=== PATIENT | male | born 1940 | race Caucasian/White ===

== ENCOUNTER 2019-03-16 15:35 | Outpatient (REF) | payer MEDICARE, OTHER, SELFPAY ==
[2019-03-16 20:15] LABS: ALT 28 U/L (12-78); AST 24 U/L (15-37); Anion Gap 9.8 mmol/L (3-11); BUN 23 mg/dL (7-18); CO2 26.2 mmol/L (21.0-32.0); CREATININE 1.29 mg/dL (0.70-1.30); Calcium 8.8 mg/dL (8.5-10.1); Calculated LDL 76 mg/dL; Chloride 110 mmol/L (98-107); Cholesterol 128 mg/dL (50-200); Estimated GFR 54.01 (mL/min/1.73m2); Glucose 93 mg/dL (70-100); HDL Cholesterol 33 mg/dL (40-60); Potassium 4.7 mmol/L (3.5-5.1); Sodium 146 mmol/L (136-145); Triglyceride 96 mg/dL (30-150)
== END 2019-03-16 15:55 ==
LOC: NCHCN 15:35
PROVIDERS: PCP Physician Assistant Medical; Visit Provider Nurse Practitioner Family
DX: E78.5 Hyperlipidemia, unspecified (principal); I10 Essential (primary) hypertension
CPT/HCPCS: 80048; 80061; 83721; 84450; 84460

== ENCOUNTER 2020-07-10 10:51 | Outpatient (REF) | payer MEDICARE, OTHER, SELFPAY ==
[2020-07-15 21:43] LABS: SARS-CoV-2 RNA Undetected (Undetected); SARS-CoV-2 Specimen Source Nasal
== END 2020-07-10 11:11 ==
LOC: NCHCN 10:51
PROVIDERS: PCP Physician Assistant Medical; Visit Provider Internal Medicine
DX: Z20.828 Contact with and (suspected) exposure to other viral communicable diseases (principal)
CPT/HCPCS: U0003

== ENCOUNTER 2020-09-12 22:19 | Outpatient (REF) | payer MEDICARE, OTHER, SELFPAY ==
[2020-09-12 19:20] LABS: ALT 25 U/L (16-63); AST 17 U/L (15-37); Albumin 3.8 g/dL (3.4-5.0); Alkaline Phosphatase 79 U/L (46-116); Anion Gap 6.2 mmol/L (3-11); BUN 20 mg/dL (7-18); Bilirubin, Total 0.6 mg/dL (0.2-1.0); CO2 28.8 mmol/L (21.0-32.0); CREATININE 1.31 mg/dL (0.70-1.30); Calcium 8.8 mg/dL (8.5-10.1); Calculated LDL 74 mg/dL (<100); Chloride 110 mmol/L (98-107); Cholesterol 130 mg/dL (<200); Estimated GFR 52.92 (mL/min/1.73m2); Glucose 91 mg/dL (74-106); HDL Cholesterol 33 mg/dL (40-60); Potassium 4.8 mmol/L (3.5-5.1); Sodium 145 mmol/L (136-145); Total Protein 6.3 g/dL (6.4-8.2); Triglyceride 118 mg/dL (<150)
== END 2020-09-12 22:39 ==
LOC: NCHCN 22:19
PROVIDERS: PCP Physician Assistant Medical; Visit Provider Physician Assistant
DX: E78.5 Hyperlipidemia, unspecified (principal); I10 Essential (primary) hypertension; I25.10 Atherosclerotic heart disease of native coronary artery without angina pectoris
CPT/HCPCS: 80053; 80061

== ENCOUNTER 2021-08-04 09:20 | Outpatient (REF) | payer MEDICARE, OTHER, SELFPAY ==
[2021-08-04 20:28] LABS: ALT 25 U/L (16-63); AST 20 U/L (15-37); Albumin 3.8 g/dL (3.4-5.0); Alkaline Phosphatase 93 U/L (46-116); BUN 24 mg/dL (7-18); Bilirubin, Total 0.8 mg/dL (0.2-1.0); CREATININE 1.3 mg/dL (0.70-1.30); Calcium 8.9 mg/dL (8.5-10.1); Calculated LDL 92 mg/dL (<100); Chloride 107 mmol/L (98-107); Cholesterol 144 mg/dL (<200); Estimated GFR 53.25 (mL/min/1.73m2); Glucose 116 mg/dL (74-106); HDL Cholesterol 35 mg/dL (40-60); Potassium 4.7 mmol/L (3.5-5.1); Sodium 142 mmol/L (136-145); Total Protein 6.1 g/dL (6.4-8.2); Triglyceride 85 mg/dL (<150)
== END 2021-08-04 09:21 | disposition home or self-care (01) ==
LOC: NCHCN 09:20
PROVIDERS: PCP Physician Assistant Medical; Visit Provider Physician Assistant
DX: E78.5 Hyperlipidemia, unspecified (principal); I10 Essential (primary) hypertension
CPT/HCPCS: 80053; 80061

== ENCOUNTER 2022-06-10 11:31 | Outpatient (REF) | payer MEDICARE, OTHER, SELFPAY ==
[2022-06-10 21:32] LABS: Abs Immature Grans 0.02 10^3/uL (0.0-0.06); Absolute Basophil Count 0.05 10^3/uL (0.0-0.2); Absolute Eosinophil Count 0.26 10^3/uL (0.0-0.7); Absolute Lymphocyte Count 1.59 10^3/uL (1.2-3.4); Absolute Monocyte Count 0.63 10^3/uL (0.1-0.8); Absolute Neutrophil Count 3.25 10^3/uL (1.2-6.7); Basophils % 0.9; Eosinophils % 4.5; HCT 27.9 % (40.0-50.0); HGB 9.5 g/dL (13.5-17.5); Immature Grans % 0.3; Lymphocytes % 27.4; MCH 32.2 pg (27.0-33.0); MCHC 34.1 % (32.0-36.0); MCV 95 fL (80-95); MPV 12.3 fL (8.0-11.0); Monocytes % 10.9; Platelet Count 178 10^3/uL (130-400); RBC 2.95 10^6/uL (4.36-5.78); RDW 16.5 % (11.8-14.1); RDW-SD 57.2 fL
[2022-06-10 21:49] LABS: Anion Gap 6.8 mmol/L (3-11); BUN 31 mg/dL (7-18); CO2 26.2 mmol/L (21.0-32.0); CREATININE 1.4 mg/dL (0.70-1.30); Calcium 9.1 mg/dL (8.5-10.1); Chloride 106 mmol/L (98-107); Estimated GFR 50.81 (mL/min/1.73m2); Glucose 114 mg/dL (74-106); Potassium 3.9 mmol/L (3.5-5.1); Sodium 139 mmol/L (136-145)
== END 2022-06-10 11:32 | disposition home or self-care (01) ==
LOC: NCHCN 11:31
PROVIDERS: PCP Physician Assistant Medical; Visit Provider Physician Assistant
DX: D61.9 Aplastic anemia, unspecified (principal); I10 Essential (primary) hypertension
CPT/HCPCS: 80048; 85025

== ENCOUNTER 2022-12-02 14:47 | Outpatient (REF) | payer MEDICARE, SELFPAY ==
[2022-12-02 20:37] LABS: COMMENT (LAB VIEW ONLY) 157.23 mg/dL; PROTEIN 14.3 mg/dL; Prot/Crea Ur Ratio 0.09
[2022-12-02 20:38] LABS: ALT 88 U/L (16-63); AST 50 U/L (15-37); Albumin 3.3 g/dL (3.4-5.0); Alkaline Phosphatase 75 U/L (46-116); Total Protein 5.3 g/dL (6.4-8.2)
[2022-12-02 20:52] LABS: Bilirubin, Direct 0.6 mg/dL (0.0-0.2)
== END 2022-12-02 14:48 | disposition home or self-care (01) ==
LOC: NCHCN 14:47
PROVIDERS: PCP Physician Assistant Medical; Visit Provider Physician Assistant
DX: R60.0 Localized edema (principal)
CPT/HCPCS: 80076; 82565; 84156

== ENCOUNTER 2023-03-31 10:14 | Outpatient (REF) | payer MEDICARE, SELFPAY ==
--- OUTSIDE RECORDS SUMMARY | 2023-03-31 10:16 | XMS_ITS | Continuity of Care Document ---
Author Name Unknown Organization [facility] Address [address] [place] [address] Care Team Providers Care Eligibility Supervisor Name Role Phone Aga Roach Primary Care Physician Encounter PENDING SALE TO [facility] Date(s): 03/23/23 - 03/23/23 [facility] [address] [place] [address] Discharge Disposition: Home or Self Care Attending Physician: Damir Freeman MD Admitting Physician: Damir Freeman MD Referring Physician: Damir Freeman MD Allergies, Adverse Reactions, Alerts No Known Medication Allergies Assessment and Plan Diagnostic Tests Pending * Cyclosporine [facility] 03/23/23 Immunizations Given and Recorded Vaccine Date Status Refusal Reason SARS-CoV-2 (COVID-19) mRNA-1273 vaccine 02/10/22 R ecorded SARS-CoV-2 (COVID-19) mRNA-1273 vaccine 07/20/21 R ecorded SARS-CoV-2 (COVID-19) mRNA BNT-162b2 vax 12/15/20 Recorded SARS-CoV-2 (COVID-19) mRNA BNT-162b2 vax 11/14/20 Recorded Medications aspirin 81 mg =, Oral, Daily, 0 Refill(s) Start Date: 06/05/22 Status: Ordered Bactrim DS Oral, Mon/Wed/Fri, 0 Refill(s) Start Date: 08/17/22 Status: Ordered cycloSPORINE 25 mg oral capsule 250 mg =, Oral, every 12 hr, 0 Refill(s) Start Date: 08/17/22 Status: Ordered lisinopril 10 mg =, Oral, Daily, 0 Refill(s) Start Date: 06/05/22 Status: Ordered metoprolol extended release 50 mg =, Oral, BID, 0 Refill(s) Start Date: 06/05/22 Status: Ordered predniSONE 25 mg =, Oral, Daily, 0 Refill(s) Start Date: 08/17/22 Status: Ordered rosuvastatin 20 mg =, Oral, Daily, 0 Refill(s) Start Date: 06/05/22 Status: Ordered Vitamin C 500 mg =, Oral, Daily, 0 Refill(s) Start Date: 06/05/22 Status: Ordered Problem List Condition Confirmation Course Effective Dates Status Health St [facility] Informant Hypertension Confirmed Active Results Laboratory List Name Date .Morphology ([facility]) 03/23/23 Automated Diff 03/23/23 Basic Metabolic Panel 03/23/23 CBC w/ Diff 03/23/23 PT/ INR 03/23/23 Most recent to oldest [Reference Range]: 1 WBC [5.0-10.0 x10^3/mcL] 10.5 x10^3/mcL *HI* (03/23/23 12:31 PM) RBC [4.6-6.0 x10^6/mcL] 2.8 x10^6/mcL *LOW* (03/23/23 12:31 PM) Neutro Auto [40.0-75.0 %] 64.9 % (03/23/23 12:31 PM) Lymph Auto [20.0-50.0 %] 20.6 % (03/23/23 12:31 PM) [place] Auto [2.0-15.0 %] 8.9 % (03/23/23 12:31 PM) Basophil Auto [0.0-1.0 %] 0.7 % (03/23/23 12:31 PM) Prothrombin Time [9.0-11.0 seconds] 27.0 seconds *HI* (03/23/23 12:31 PM) INR 2.8 1 *NA* (03/23/23 12:31 PM) BUN [7-18 mg/dL] 64 mg/dL *HI* (03/23/23 12:31 PM) Glucose Level [74-106 mg/dL] 209 mg/dL *HI* (03/23/23 12:31 PM) Potassium Level [3.5-5.1 mmol/L] 4.1 mmo l/L (03/23/23 12:31 PM) MCV [80.0-96.0 fL] 120.2 fL *HI* (03/23/23 PM) RBC Morph Abnormal (03/23/23 PM) MCHC [31.0-35.0 g/dL] 35.1 g/dL *HI* (03/23/23 PM) Sodium Level [136-145 mmol/L] 144 mmol/L (03/23/23: PM) Hct [41.0-51.0 %] 33.9 % *LOW* (03/23/23 PM) Calcium Level [8.5-10.1 mg/dL] 9.0 mg/dL (03/23/23 PM) MCH [26.0-32.0 pg] 42.2 pg *HI* (03/23/23 PM) Neutro Absolute 6.8 x10^3/mcL *NA* (03/23/23: PM) Hgb [14.0-18.0 g/dL] 11.9 g/dL *LOW* (03/23/23 PM) Platelets [130-450 x10^3/mcL] 234 x10^3/ mcL (03/23/23:31 PM) CO2 [21-32 mmol/L] 25 mmol/L (03/23/23:31 PM) Macrocyte Moderate (03/23/23: PM) eGFR Non-AA [>=60] 23 *LOW* (03/23/23 PM) eGFR AA [>=60] 23 *LOW* (03/23/23 PM) Chloride Level [98-107 mmol/L] 105 mmol/ L (03/23/23: PM) RDW-CV [11.5-14.5 %] 14.4 % (03/23/23 PM) Imm Gran Auto [0.0-0.9 %] 0.3 % (03/23/23 PM) Slide Review Morph Only (03/23/23 PM) Anisocyte Rare (03/23/23 PM) Creatinine Level [0.70-1.30 mg/dL] 2.71 mg/dL *HI* (03/23/23 12:31 PM) Plt Estimation [Adequate] Adequate (03/23/23 12:31 PM) Eos, Auto [1.0-6.0 %] 4.6 % (03/23/23 12:31 PM) 1Interpretive Data: INR 2-2.5 Prophylaxis: Short term DVT INR 2-3 Prophylaxis: hip and femur surgery Therapy: DVT (3 mos) PE (3-6 mos) TIA (middle or intermediate school principal) Atr Fib (middle or intermediate school principal) Syst. emb post OR Mitral Stenosis with emboli (middle or intermediate school principal) Tissue prosthetic valves (3 mos min) INR 3-4.5 Therapy: recurrent DVT, PE (middle or intermediate school principal) Prosthetic heart valves (middle or intermediate school principal) Social History Social History Type Response Tobacco Never tobacco user T obacco Use:. Sex Male Patient Care team information Care Team Personnel Name: Mishel Garland CREDIT COORDINATOR Position: Physician Member Role: Nurse Practitioner Name: Aga Roach PA-C Position: PowerChart View Only Member Role: Primary Care Physician Address: Address: [facility] [address] [place] [address]- Care Team Related Persons Name: MAGUE SANTOYO Address: Home [address] [place] [address], [phone]
--- OUTSIDE RECORDS SUMMARY | 2023-03-31 10:16 | XMS_ITS | Continuity of Care Document ---
Author Name Unknown Organization [facility] Address [address] [place] [address] Care Team Providers Care Optical Fabrication Technician Name Role Phone Aga Roach Primary Care Physician Encounter [facility] Date(s): 07/10/22 - 07/10/[address] [address] Discharge Disposition: Home or Self Care Attending Physician: Aga Roach Admitting Physician: Aga Roach Referring Physician: Aga Roach Allergies, Adverse Reactions, Alerts No Known Medication Allergies Immunizations Given and Recorded Vaccine Date Status Refusal Reason SARS-CoV-2 (COVID-19) mRNA-1273 vaccine 02/10/22 R ecorded SARS-CoV-2 (COVID-19) mRNA-1273 vaccine 07/20/21 R ecorded SARS-CoV-2 (COVID-19) mRNA BNT-162b2 vax 12/15/20 Recorded SARS-CoV-2 (COVID-19) mRNA BNT-162b2 vax 11/14/20 Recorded Medications aspirin 81 mg =, Oral, Daily, 0 Refill(s) Start Date: 06/05/22 Status: Ordered lisinopril 10 mg =, Oral, Daily, 0 Refill(s) Start Date: 06/05/22 Status: Ordered metoprolol extended release 50 mg =, Oral, BID, 0 Refill(s) Start Date: 06/05/22 Status: Ordered rosuvastatin 20 mg =, Oral, Daily, 0 Refill(s) Start Date: 06/05/22 Status: Ordered Vitamin C 500 mg =, Oral, Daily, 0 Refill(s) Start Date: 06/05/22 Status: Ordered Problem List Condition Confirmation Course Effective Dates Status Health St atus Informant Hypertension Confirmed Active Vital Signs Most recent to oldest [Reference Range]: 1 2 3 Temperature Tympanic [36.6-37.9 Deg C] 37.9 Deg C (07/10/22 2:24 PM) Temperature Temporal Artery [36-38 Deg C] 37.9 Deg C (07/10/22 6:26 PM) 37.7 Deg C (07/10/22 5:21 PM) 37.7 Deg C (07/10/22 5:16 PM) Temperature Temporal Artery (DegF) [97.3-100 Deg F] 99.86 Deg F (07/10/22 5:21 PM) 99.86 Deg F (07/10/22 5:16 PM) 98.96 Deg F (07/10/22 5:11 PM) Peripheral Pulse Rate [60-100 bpm] 78 bpm (07/10/22 6:26 PM) 75 bpm (07/10/22 5:21 PM) 74 bpm (07/10/22:16 PM) Heart Rate Monitored [60-100 bpm] 92 bpm (07/10/22 1:30 PM) Respiratory Rate [12-24 br/min] 18 br/min (07/10/22:26 PM) 16 br/min (07/10/22:21 PM) 16 br/min (07/10/22 5:16 PM) Blood Pressure [90-140/60-90 mmHg] 105/61mmHg (07/10/22 6:26 PM) 105/62mmHg (07/10/22:21 PM) 104/58mmHg (07/10/22:16 PM) Mean Arterial Pressure, Cuff [65-140 mmHg] 76 mmHg (07/10/22:21 PM) 73 mmHg (07/10/22 5:16 PM) 76 mmHg (07/10/22:11 PM) Mean Arterial Pressure Cuff 75 mmHg (07/10/22:26 PM) 76 mmHg (07/10/22 5:21 PM) 71 mmHg (07/10/22 5:16 PM) Blood Pressure Location Right arm (07/10/22:21 PM) Right arm (07/10/22 5:16 PM) Right arm (11/4/22 5:11 PM) Blood Pressure Method Automatic (07/10/22 5:21 PM) Automatic (07/10/22 5:16 PM) Automatic (07/10/22 5:11 PM) Social History Social History Type Response Tobacco Never tobacco user T obacco Use:. Sex Male Patient Care team information Personnel Name: Aga Roach
--- OUTSIDE RECORDS SUMMARY | 2023-03-31 10:16 | XMS_ITS | Continuity of Care Document ---
Author Name Unknown Organization [facility] Address [address] [place] [address] Care Team Providers Care Occupational Rehabilitation Aide Name Role Phone Aga Roach Primary Care Physician Encounter [facility] Date(s): 01/19/23 - 01/19/[address] [address] Discharge Disposition: Home or Self Care Attending [...] Date: 06/05/22 Status: Ordered Bactrim DS Oral, Wed/Wed/Wed, 0 Refill(s) Start Date: 08/17/22 Status: Ordered [...] Confirmed Active Results Laboratory List Name Date Basic Metabolic Panel 01/19/23 CBC w/ Diff 01/19/23 Cyclosporine [facility] 01/19/23 PT/ INR 01/19/23 .Morphology ([facility]) 01/19/23 Automated Diff 01/19/23 Most recent to oldest [Reference Range]: 1 WBC [5.0-10.0 x10^3/mcL] 7.5 x10^3/mcL (01/19/23 9:59 AM) RBC [4.6-6.0 x10^6/mcL] 2.5 x10^6/mcL *LOW* (01/19/23 9:59 AM) Neutro Auto [40.0-75.0 %] 59.9 % (01/19/23 9:59 AM) Lymph Auto [20.0-50.0 %] 27.9 % (01/19/23 9:59 AM) [place] Auto [2.0-15.0 %] 10.3 % (01/19/23 9:59 AM) Basophil Auto [0.0-1.0 %] 0.5 % (01/19/23 9:59 AM) Prothrombin Time [9.0-11.0 seconds] 16.7 seconds *HI* (01/19/23 9:59 AM) INR 1.7 *NA* (01/19/23 9:59 AM) BUN [7-18 mg/dL] 61 mg/dL *HI* (01/19/23 9:59 AM) Glucose Level [74-106 mg/dL] 124 mg/dL *HI* (01/19/23 9:59 AM) Potassium Level [3.5-5.1 mmol/L] 4.5 mmo l/L (01/19/23 9:59 AM) MCV [80.0-96.0 fL] 124.5 fL *HI* (01/19/23 9:59 AM) RBC Morph Abnormal (01/19/23 9:59 AM) MCHC [31.0-35.0 g/dL] 33.3 g/dL (01/19/23 9:59 AM) Sodium Level [136-145 mmol/L] 142 mmol/L (01/19/23 9:59 AM) Hct [41.0-51.0 %] 31.5 % *LOW* (01/19/23 9:59 AM) Microcyte Small (01/19/23 9:59 AM) Schistocytes Rare (01/19/23 9:59 AM) Calcium Level [8.5-10.1 mg/dL] 8.8 mg/dL (01/19/23 9:59 AM) Poik Small (01/19/23 9:59 AM) MCH [26.0-32.0 pg] 41.5 pg *HI* (01/19/23 9:59 AM) Neutro Absolute 4.5 x10^3/mcL *NA* (01/19/23 9:59 AM) Hgb [14.0-18.0 g/dL] 10.5 g/dL *LOW* (01/19/23 9:59 AM) Polychrom Small (01/19/23 9:59 AM) Platelets [130-450 x10^3/mcL] 200 x10^3/ mcL (01/19/23 9:59 AM) CO2 [21-32 mmol/L] 28 mmol/L (01/19/23 9:59 AM) Macrocyte Moderate (01/19/23 9:59 AM) eGFR Non-AA [>=60] 31 *LOW* (01/19/23 9:59 AM) eGFR AA [>=60] 31 *LOW* (01/19/23 9:59 AM) Chloride Level [98-107 mmol/L] 106 mmol/ L (01/19/23 9:59 AM) RDW-CV [11.5-17.0 %] 20.2 % *HI* (01/19/23 9:59 AM) Steve Cells Rare (01/19/23 9:59 AM) Stomatocyte Small (01/19/23 9:59 AM) Imm Gran Auto [0.0-0.9 %] 0.5 % (01/19/23 9:59 AM) Slide Review Morph Only (01/19/23 9:59 AM) Anisocyte Moderate (01/19/23 9:59 AM) Creatinine Level [0.70-1.30 mg/dL] 2.13 mg/dL *HI* (01/19/23 9:59 AM) Plt Estimation [Adequate] Adequate (01/19/23 9:59 AM) Cyclosporine [facility] [See Note ng/mL] 144 ng /mL 1 *NA* (01/19/23 9:59 AM) Eos, Auto [1.0-6.0 %] 0.9 % *LOW* (01/19/23 9:59 AM) 1Result Comment: NOTE: Cyclosporine Therapeutic Range: 50-250 ng/mL (The goal level is based on clinical context). Should be collected as a trough level. Assayed utilizing [employer] Chemiluminescent technology. Values obtained by using different assay methods cannot be used interchangeably. Test performed [place] [address] Social History Social History Type Response Tobacco Never tobacco user T obacco Use:. Sex Male Patient Care team information Care Team Personnel Name: Mishel Garland QUALITY ASSURANCE TECH Position: Physician Member Role: Nurse Practitioner Name: Aga Roach PA-C Position: PowerChart View Only Member Role: Informed Provider Address: Address: [address] [address] [place] Care Team Related Persons Name: MAGUE SANTOYO [address] [place], [phone]
--- OUTSIDE RECORDS SUMMARY | 2023-03-31 10:16 | XMS_ITS | Continuity of Care Document ---
Author Name Unknown Organization [facility] Address [address] [place] [address] Care Team Providers Care Parts Sales Counterperson Name Role Phone Aga Roach Primary Care Physician [phone] Encounter [facility] Date(s): 06/25/22 - 06/25/[address] [address] Discharge Disposition: Home or Self Care Attending Physician: Aga Roach Admitting Physician: Aga Roach Referring Physician: Elie Gustafson DO Allergies, Adverse Reactions, Alerts No Known Medication Allergies Assessment and Plan Future Scheduled Tests Laboratory* CBC w/ Diff 06/11/22 * Parvovirus B19 Abs, IgG & IgM, S VARNER 06/11/22 Medications aspirin 81 mg =, Oral, Daily, [...] Confirmed Active Results Laboratory List Name Date ABO/Rh 06/25/22 Antibody Screen Gel 06/25/22 Red Blood Cells 06/25/22 CBC w/ Diff 06/25/22 .Morphology ([facility]) 06/25/22 Automated Diff 06/25/22 Most recent to oldest [Reference Range]: 1 WBC [5.0-10.0 x10^3/mcL] 6.2 x10^3/mcL (06/25/22 8:56 AM) RBC [4.6-6.0 x10^6/mcL] 2.3 x10^6/mcL *LOW* (06/25/22 8:56 AM) Neutro Auto [40.0-75.0 %] 47.3 % (06/25/22 8:56 AM) Lymph Auto [20.0-50.0 %] 37.4 % (06/25/22 8:56 AM) [place] Auto [2.0-15.0 %] 10.6 % (06/25/22 8:56 AM) Basophil Auto [0.0-1.0 %] 0.5 % (06/25/22 8:56 AM) ABO/Rh Type O POS *Unknown* (06/25/22 3:42 PM) MCV [80.0-103.0 fL] 94.0 fL (06/25/22 8:56 AM) RBC Morph Abnormal (06/25/22 8:56 AM) MCHC [31.0-35.0 g/dL] 34.5 g/dL (06/25/22 8:56 AM) Hct [41.0-51.0 %] 22.0 % *LOW* (06/25/22 8:56 AM) MCH [26.0-32.0 pg] 32.5 pg *HI* (06/25/22 8:56 AM) Neutro Absolute 2.9 x10^3/mcL *NA* (06/25/22 8:56 AM) Hgb [14.0-18.0 g/dL] 7.6 g/dL *LOW* (06/25/22 8:56 AM) Polychrom Rare (06/25/22 8:56 AM) Platelets [130-450 x10^3/mcL] 175 x10^3/ mcL (06/25/22 8:56 AM) RBC Product Ready Done (06/25/22 3:42 PM) RDW-CV [11.5-17.0 %] 16.2 % (06/25/22 8:56 AM) Imm Gran Auto [0.0-0.9 %] 0.3 % (06/25/22 8:56 AM) Anisocyte Small (06/25/22 8:56 AM) Antibody Screen Gel Negative ABSC (06/25/22 3:42 PM) Plt Estimation [Adequate] Adequate (06/25/22 8:56 AM) Eos, Auto [1.0-6.0 %] 3.9 % (06/25/22 8:56 AM) Social History Social History Type Response Tobacco Never tobacco user T obacco Use:. Sex Male Patient Care team information Personnel Name: Aga Roach
--- OUTSIDE RECORDS SUMMARY | 2023-03-31 10:17 | XMS_ITS | Continuity of Care Document ---
Author Name Unknown Organization [facility] Address [address] [place] [address] Care Team Providers Care Sound Cutter Name Role Phone Aga Roach Primary Care Physician [phone] Encounter [facility]_[place] Date(s): 12/28/22 - 12/28/[address] [address] Discharge Disposition: Home or Self Care Attending Physician: Aga Roach PA-C Admitting Physician: Aga Roach PA-C Referring Physician: Aga Roach PA-C Allergies, Adverse Reactions, Alerts No Known Medication Allergies Assessment and Plan Future Appointments Immunizations Given and Recorded Vaccine Date Status Refusal Reason SARS-CoV-2 (COVID-19) mRNA-1273 vaccine 02/10/22 R ecorded SARS-CoV-2 (COVID-19) mRNA-1273 vaccine 07/20/21 R ecorded SARS-CoV-2 (COVID-19) mRNA BNT-162b2 vax 12/15/20 Recorded SARS-CoV-2 (COVID-19) mRNA BNT-162b2 vax 11/14/20 Recorded Medications aspirin 81 mg =, Oral, Daily, 0 Refill(s) Start Date: 06/05/22 Status: Ordered Bactrim DS Oral, Mon/Wed/Wed, 0 Refill(s) Start Date: 08/17/22 Status: Ordered [...] Health St atus Informant Hypertension Confirmed Active Social History Social History Type Response Tobacco Never tobacco user T obacco Use:. Sex Male Patient Care team information Care Team Personnel Name: Mishel Garland CANTEEN MANAGER Position: Physician Member Role: Nurse Practitioner Name: Aga Roach PA-C Position: PowerChart View Only Member Role: Primary Care Physician Address: Address: [address] [address] Care Team Related Persons Name: MAGUE SANTOYO Address: Home [address] [place] [address] [place], [phone]
--- OUTSIDE RECORDS SUMMARY | 2023-03-31 10:17 | XMS_ITS | Continuity of Care Document ---
Author Name Unknown Organization [facility] Address [address] [place] [address] Care Team Providers Care Architectural Renderer Name Role Phone Aga Roach Primary Care Physician [facility] Date[facility] 07/22/22 - 07/23/[address] [address] Encounter Diagnosis Hypoproliferative anemia(Discharge Diagnosis) - 07/22/22 Discharge Disposition: Home or Self Care Attending Physician: Vanessa Sifuentes MD Admitting Physician: Vanessa Sifuentes MD Allergies, Adverse Reactions, Alerts No Known Medication Allergies Assessment and Plan Extracted from: Title:Clinical Document Author:Margareth Roy Date :07/23/22 Diagnosis: 1. Hypoproliferat artur anemia Comment: Diagnosis: Weakness Comment: Functional Status 07/22/22 Other exposure to Infectious Disease Non e Immunizations Given and Recorded Vaccine Date Status [...] Active Results Laboratory List Name Date ABO/Rh 07/22/22 Antibody Screen Gel 07/22/22 Red Blood Cells 07/22/22 C-Reactive Protein High Sensitivity (CRP HS) 07/22/22 CBC w/o Diff (CBC) 07/22/22 Comprehensive Metabolic Panel (CMP) 07/07 02/25 Reticulocyte Count Automated 07/22/22 Most recent to oldest [Reference Range]: 1 WBC [5.0-10.0 x10^3/mcL] 12.3 x10^3/mcL *HI* (07/22/22 6:05 PM) RBC [4.6-6.0 x10^6/mcL] 2.2 x10^6/mcL *LOW* (07/22/22 6:05 PM) BUN [7-18 mg/dL] 34 mg/dL *HI* (07/22/22 6:05 PM) ABO/Rh Type O POS *Unknown* (07/22/22 7:17 PM) Glucose Level [74-106 mg/dL] 129 mg/dL *HI* (07/22/22 6:05 PM) Potassium Level [3.5-5.1 mmol/L] 3.7 mmo l/L (07/22/22 6:05 PM) MCV [80.0-96.0] 87.4 (07/22/22 6:05 PM) AST [15-37 unit/L] 20 unit/L (07/22/22 6:05 PM) ALT [16-63 unit/L] 32 unit/L (07/22/22 6:05 PM) MCHC [31.0-35.0 g/dL] 34.0 g/dL (07/22/22 6:05 PM) Sodium Level [136-145 mmol/L] 131 mmol/L *LOW* (07/22/22 6:05 PM) Hct [41.0-51.0 %] 19.4 % 1 *CRIT* (07/22/22 6:05 PM) Calcium Level [8.5-10.1 mg/dL] 8.8 mg/dL (07/22/22 6:05 PM) Albumin Level [3.4-5.0 g/dL] 2.6 g/dL *LOW* (07/22/22 6:05 PM) Protein Total [6.4-8.2 g/dL] 5.9 g/dL *LOW* (07/22/22 6:05 PM) MCH [26.0-32.0 pg] 29.7 pg (07/22/22 6:05 PM) Bilirubin Total [0.2-1.0 mg/dL] 0.9 mg/d L (07/22/22 6:05 PM) Hgb [14.0-18.0 g/dL] 6.6 g/dL 2 *CRIT* (07/22/22 6:05 PM) Alk Phos [46-146 unit/L] 80 unit/L (07/22/22 6:05 PM) Platelets [130-450 x10^3/mcL] 214 x10^3/ mcL (07/22/22 6:05 PM) CO2 [21-32 mmol/L] 24 mmol/L (07/22/22 6:05 PM) Reticulocyte % [0.5-2.4 %] 0.2 % *LOW* (07/22/22 6:05 PM) eGFR Non-AA [>=60] 41 *LOW* (07/22/22 6:05 PM) eGFR AA [>=60] 41 *LOW* (07/22/22 6:05 PM) Chloride Level [98-107 mmol/L] 100 mmol/ L (07/22/22 6:05 PM) RBC Product Ready Done (07/22/22 7:17 PM) RDW-CV [11.5-17.0 %] 14.9 % (07/22/22 6:05 PM) CRP High Sens [0.00-3.00 mg/L] 234.44 mg /L *HI* (07/22/22 6:05 PM) Creatinine Level [0.70-1.30 mg/dL] 1.66 mg/dL *HI* (07/22/22 6:05 PM) Antibody Screen Gel Negative ABSC (07/22/22 7:17 PM) 1Result Comment: Called to Katie Johnie at 07/22/2022 18:42:30 EST_ 2Result Comment: Called to Katie Johnie at109/21/2021 18:41:56 EST _ Vital Signs Most recent to oldest [Reference Range]: 1 2 3 Temperature Temporal Artery [36-38 Deg C] 37.2 Deg C (07/22/22 11:32 PM) 37.5 Deg C (07/22/22 11:13 PM) 37.8 Deg C (07/22/22 8:45 PM) Temperature Temporal Artery (DegF) [97.3-100 Deg F] 99.5 Deg F (07/22/22 11:13 PM) 100.04 Deg F *HI* (07/22/22 8:45 PM) Peripheral Pulse Rate [60-100 bpm] 94 bpm (07/23/22 1:00 AM) 87 bpm (07/23/22 12:03 AM) 93 bpm (07/22/22 11:29 PM) Heart Rate Monitored [60-100 bpm] 93 bpm (07/23/22 1:00 AM) 86 bpm (07/23/22 12:03 AM) 97 bpm (07/22/22 11:29 PM) Respiratory Rate [12-24 br/min] 20 br/min (07/23/22 1:00 AM) 16 br/min (07/23/22 12:03 AM) 16 br/min (07/22/22 11:29 PM) Blood Pressure [90-140/60-90 mmHg] 112/64mmHg (07/23/22 1:00 AM) 100/64mmHg (07/23/22 12:03 AM) 110/66mmHg (07/22/22 11:32 PM) Mean Arterial Pressure, Cuff [65-140 mmHg] 80 mmHg (07/23/22 1:00 AM) 76 mmHg (07/23/22 12:03 AM) 81 mmHg (07/22/22 11:32 PM) Weight Dosing 86.00 kg (07/22/22 5:21 PM) Weight Estimated 86.00 kg (07/22/22 5:15 PM) Height/Length Dosing 174.800 cm (07/22/22 5:21 PM) Height/Length Estimated 174.800 cm (07/22/22 5:15 PM) Social History Social History Type Response Tobacco Never tobacco user T obacco Use:. Sex Male Hospital Discharge Instructions Patient Education 07/23/2022 00:00:27 Anemia Anemia Anemia is a condition in which there is not enough red blood cells or hemoglobin in the blood. Hemoglobin is a substance in red blood cells that carries oxygen. When you do not have enough red blood cells or hemoglobin (are anemic), your body cannot get enoughoxygen and your organs may not work properly. As a result, you may feel very tired or have other problems. What are the causes? Common causes of anemia include: ??? Excessive bleeding. Anemia can be caused by excessive bleeding inside or outside the body, including bleeding from the intestines or from heavy menstrual periods in females. ??? Poor nutrition. ??? Long-lasting (chronic) kidney, thyroid, and liver disease. ??? Bone marrow disorders, spleen problems, and blood disorders. ??? Cancer and treatments for cancer. ??? HIV (human immunodeficiency virus) and AIDS (acquired immunodeficiency syndrome). ??? Infections, medicines, and autoimmune disorders that destroy red blood cells. What are the signs or symptoms? Symptoms of this condition include: ??? Minor weakness. ??? Dizziness. ??? Headache, or difficulties concentrating and sleeping. ??? Heartbeats that feel irregular or faster than normal (palpitations). ??? Shortness of breath, especially with exercise. ??? Pale skin, lips, and nails, or cold hands and feet. ??? Indigestion and nausea. Symptoms may occur suddenly or develop slowly. If your anemia is mild, you may not have symptoms. How is this diagnosed? This condition is diagnosed based on blood tests, your medical history, and a physical exam. In some cases, a test may be needed in which cells are removed from the soft tissue inside of a bone and looked at under a microscope (bone marrow biopsy). Your health care provider may also check your stool (feces) for blood and may do additional testing to look for the cause of your bleeding. Other tests may include: ??? Imaging tests, such as a CT scan or MRI. ??? A procedure to see inside your esophagus and stomach (endoscopy). ??? A procedure to see inside your colon and rectum (colonoscopy). How is this treated? Treatment for this condition depends on the cause. If you continue to lose a lot of blood, you may need to be treated at a hospital. Treatment may include: ??? Taking supplements of iron, vitamin B12, or folic acid. ??? Taking a hormone medicine (erythropoietin) that can help to stimulate red blood cell growth. ??? Having a blood transfusion. This may be needed if you lose a lot of blood. ??? Making changes to your diet. ??? Having surgery to remove your spleen. Follow these instructions at home: ??? Take [id number] and prescription medicines only as told by your health care provider. ??? Take supplements only as told by your health care provider. ??? Follow any diet instructions that you were given by your health care provider. ??? Keep all follow-up visits as told by your health care provider. This is important. Contact a health care provider if: ??? You develop new bleeding anywhere in the body. Get help right away if: ??? You are very weak. ??? You are short of breath. ??? You have pain in your abdomen or chest. ??? You are dizzy or feel faint. ??? You have trouble concentrating. ??? You have bloody stools, black stools, or tarry stools. ??? You vomit repeatedly or you vomit up blood. These symptoms may represent a serious problem that is an emergency. Do not wait to see if the symptoms will go away. Get medical help right away. Call your local emergency services (911 in the [place] Do not drive yourself to the hospital. Summary ??? Anemia is a condition in which you do not have enough red blood cells or enough of a substance in your red blood cells that carries oxygen (hemoglobin). ??? Symptoms may occur suddenly or develop slowly. ??? If your anemia is mild, you may not have symptoms. ??? This condition is diagnosed with blood tests, a medical history, and a physical exam. Other tests may be needed. ??? Treatment for this condition depends on the cause of the anemia. This information is not intended to replace advice given to you by your health care provider. Make sure you discuss any questions you have with your health care provider. Document Revised: 07/30/2020 Document Reviewed: 07/30/2020 [employer] Patient Education ?? 2021 [employer]. Follow Up Care 07/22/2022 17:14:56 With:Aga Roach Address: [facility] [address] [place] [address]- When:1 week Emergency department Discharge instructions * Eddie Faulkner MD: PERFORM Event Display: ED Discharge Information Authored Date: BARBARAPERRY RUKHSANA A :1940 Age:82 years Sex:Male Visit Date:07/22/2022 Primary Care Physician: Aga Roach Discharge Instructions We would like to thank you for allowing us to assist you with your healthcare needs. The following includes patient education materials and information regarding your injury/illness. Diagnosis from Today's Visit Hypoproliferative anemia Discharge Vitals Temperature??(Temporal Artery) 99.0 ??F (37.2 ??C) Heart Rate??(Peripheral) 94 Heart Rate??(Monitored) 93 Respiratory Rate?? 20 Blood Pressure?? 112/64?? Height?? 68.82 in (174.800 cm) Weight??(Estimated) 189.63 lb (86.00 kg) Allergies No Known Medication Allergies What to Do Next You Need to Schedule the Following Appointments Follow Up with??Aga Roach When:??Within 1 week Where: [facility] [address] [place] [address]- You were treated today on an emergency basis; it may be land to contact your primary care provider to notify them of your visit today. You may have been referred to your regular doctor or a specialist, please follow up as instructed. If your condition worsens or you can't get in to see the doctor, contact the Emergency Department. Medications What How Much When Instructions Next Dose Unchanged ascorbic acid (Vitamin C) 500 Milligrams Oral (given by mouth) Every day Unchanged aspirin 81 Milligrams Oral (given by mouth) Every day Unchanged lisinopril 10 Milligrams Oral (given by mouth) Every day Unchanged metoprolol (metoprolol extended release) 50 Milligrams Oral (given by mouth) 2 times a day Unchanged rosuvastatin 20 Milligrams Oral (given by mouth) Every day Education Materials Anemia Anemia is a condition in which there is not enough red blood cells or hemoglobin in the blood. Hemoglobin is a substance in red blood cells that carries oxygen. When you do not have enough red blood cells or hemoglobin (are anemic), your body cannot get enoughoxygen and your organs may not work properly. As a result, you may feel very tired or have other problems. What are the causes? Common causes of anemia include: ? Excessive bleeding. Anemia can be caused by excessive bleeding inside or outside the body, including bleeding from the intestines or from heavy menstrual periods in females. ? Poor nutrition. ? Long-lasting (chronic) kidney, thyroid, and liver disease. ? Bone marrow disorders, spleen problems, and blood disorders. ? Cancer and treatments for cancer. ? HIV (human immunodeficiency virus) and AIDS (acquired immunodeficiency syndrome). ? Infections, medicines, and autoimmune disorders that destroy red blood cells. What are the signs or symptoms? Symptoms of this condition include: ? Minor weakness. ? Dizziness. ? Headache, or difficulties concentrating and sleeping. ? Heartbeats that feel irregular or faster than normal (palpitations). ? Shortness of breath, especially with exercise. ? Pale skin, lips, and nails, or cold hands and feet. ? Indigestion and nausea. Symptoms may occur suddenly or develop slowly. If your anemia is mild, you may not have symptoms. How is this diagnosed? This condition is diagnosed based on blood tests, your medical history, and a physical exam. In some cases, a test may be needed in which cells are removed from the soft tissue inside of a bone and looked at under a microscope (bone marrow biopsy). Your health care provider may also check your stool (feces) for blood and may do additional testing to look for the cause of your bleeding. Other tests may include: ? Imaging tests, such as a CT scan or MRI. ? A procedure to see inside your esophagus and stomach (endoscopy). ? A procedure to see inside your colon and rectum (colonoscopy). How is this treated? Treatment for this condition depends on the cause. If you continue to lose a lot of blood, you may need to be treated at a hospital. Treatment may include: ? Taking supplements of iron, vitamin B12, or folic acid. ? Taking a hormone medicine (erythropoietin) that can help to stimulate red blood cell growth. ? Having a blood transfusion. This may be needed if you lose a lot of blood. ? Making changes to your diet. ? Having surgery to remove your spleen. Follow these instructions at home: ? Take [id number] and prescription medicines only as told by your health care provider. ? Take supplements only as told by your health care provider. ? Follow any diet instructions that you were given by your health care provider. ? Keep all follow-up visits as told by your health care provider. This is important. Contact a health care provider if: ? You develop new bleeding anywhere in the body. Get help right away if: ? You are very weak. ? You are short of breath. ? You have pain in your abdomen or chest. ? You are dizzy or feel faint. ? You have trouble concentrating. ? You have bloody stools, black stools, or tarry stools. ? You vomit repeatedly or you vomit up blood. These symptoms may represent a serious problem that is an emergency. Do not wait to see if the symptoms will go away. Get medical help right away. Call your local emergency services (911 in the [place] Do not drive yourself to the hospital. Summary ? Anemia is a condition in which you do not have enough red blood cells or enough of a substance in your red blood cells that carries oxygen (hemoglobin). ? Symptoms may occur suddenly or develop slowly. ? If your anemia is mild, you may not have symptoms. ? This condition is diagnosed with blood tests, a medical history, and a physical exam. Other tests may be needed. ? Treatment for this condition depends on the cause of the anemia. This information is not intended to replace advice given to you by your health care provider. Make sure you discuss any questions you have with your health care provider. Document Revised: 07/30/2020 Document Reviewed: 07/30/2020 Elsevier Patient Education ?? 2021 [employer] Tests Performed Lab Test Name Test Result Date/Time WBC 12.3 x10^3/mcL 07/22/2022 18:05 EST RBC 2.2 x10^6/mcL 07/22/2022 18:05 EST Hgb 6.6 g/dL 07/22/2022 18:05 EST Hct 19.4 % 07/22/2022 18:05 EST MCV 87.4 07/22/2022 18:05 EST MCH 29.7 pg 07/22/2022 18:05 EST MCHC 34.0 g/dL 07/22/2022 18:05 EST RDW-CV 14.9 % 07/22/2022 18:05 EST Platelets 214 x10^3/mcL 07/22/2022 18:05 EST Reticulocyte % 0.2 % 07/22/2022 18:05 EST Sodium Level 131 mmol/L 07/22/2022 18:05 EST Potassium Level 3.7 mmol/L 07/22/2022 18:05 EST Chloride Level 100 mmol/L 07/22/2022 18:05 EST CO2 24 mmol/L 07/22/2022 18:05 EST Alk Phos 80 unit/L 07/22/2022 18:05 EST AST 20 unit/L 07/22/2022 18:05 EST ALT 32 unit/L 07/22/2022 18:05 EST BUN 34 mg/dL 07/22/2022 18:05 EST Glucose Level 129 mg/dL 07/22/2022 18:05 EST Creatinine Level 1.66 mg/dL 07/22/2022 18:05 EST eGFR AA 41 07/22/2022 18:05 EST eGFR Non-AA 41 07/22/2022 18:05 EST Calcium Level 8.8 mg/dL 07/22/2022 18:05 EST Protein Total 5.9 g/dL 07/22/2022 18:05 EST Albumin Level 2.6 g/dL 07/22/2022 18:05 EST Bilirubin Total 0.9 mg/dL 07/22/2022 18:05 EST CRP High Sens 234.44 mg/L 07/22/2022 18:05 EST ABO/Rh Type O POS 07/22/2022 19:17 EST Antibody Screen Gel Negative ABSC 07/22/2022 19:17 EST RBC Product Ready Done 07/22/2022 19:17 EST Crossmatch - IS Compatible 07/22/2022 19:17 EST Patient/Machine Candle Molder Signature Patient Name:RUKHSANA SANTOYO I have received this information and my questions have been answered. Patient/Machine Candle Molder Name: Patient/Machine Candle Molder Signature: Relationship to Patient: Witness Name/Signature: Date: Electronically Signed on: 07/23/2022 01:01 ESTSigned by:LEONOR Emergency department Note * Margareth Roy: PERFORM Event Display: ED Notes Authored Date: Discharge summary * Margareth Roy: PERFORM Event Display: Discharge Note Authored Date: * Margareth Roy: PERFORM Event Display: Discharge Note Authored Date: [id number] Diagnosis: 1. Hypoproliferative anemia Comment: Diagnosis: Weakness Comment: Electronically Signed on 07/23/22 07:13 AM Margareth Roy Patient Care team information Personnel Name: Aga Roach Address: Address: [address] [address]
--- OUTSIDE RECORDS SUMMARY | 2023-03-31 10:17 | XMS_ITS | Continuity of Care Document ---
Author Name Unknown Organization [facility] Address [address] [place] [address] Care Team Providers Care Plush Cutter Name Role Phone Aga Roach Primary Care Physician [phone] Encounter [facility] Date(s): 01/08/23 - 01/08/[address] [address] Discharge Disposition: Home or Self Care Attending [...] Results Laboratory List Name Date .Morphology ([facility]) 01/08/23 Automated Diff 01/08/23 CBC w/ Diff 01/08/23 Most recent to oldest [Reference Range]: 1 WBC [5.0-10.0 x10^3/mcL] 10.0 x10^3/mcL (01/08/23 7:48 AM) RBC [4.6-6.0 x10^6/mcL] 2.5 x10^6/mcL *LOW* (01/08/23 7:48 AM) Neutro Auto [40.0-75.0 %] 67.2 % (01/08/23 7:48 AM) Lymph Auto [20.0-50.0 %] 22.7 % (01/08/23 7:48 AM) Crowley Auto [2.0-15.0 %] 8.6 % (01/08/23 7:48 AM) Basophil Auto [0.0-1.0 %] 0.3 % (01/08/23 7:48 AM) MCV [80.0-96.0 fL] 125.0 fL *HI* (01/08/23 7:48 AM) RBC Morph Abnormal (01/08/23 7:48 AM) MCHC [31.0-35.0 g/dL] 33.3 g/dL (01/08/23 7:48 AM) Hct [41.0-51.0 %] 31.5 % *LOW* (01/08/23 7:48 AM) Microcyte Small (01/08/23 7:48 AM) Schistocytes Rare (01/08/23 7:48 AM) MCH [26.0-32.0 pg] 41.7 pg *HI* (01/08/23 7:48 AM) Neutro Absolute 6.7 x10^3/mcL *NA* (01/08/23 7:48 AM) Hgb [14.0-18.0 g/dL] 10.5 g/dL *LOW* (01/08/23 7:48 AM) Polychrom Rare (01/08/23 7:48 AM) Platelets [130-450 x10^3/mcL] 210 x10^3/ mcL (01/08/23 7:48 AM) Macrocyte Moderate (01/08/23 7:48 AM) RDW-CV [11.5-17.0 %] 22.6 % *HI* (01/08/23 7:48 AM) Ovalocytes Rare (01/08/23 7:48 AM) Imm Gran Auto [0.0-0.9 %] 0.4 % (01/08/23 7:48 AM) Plt Clumps Noted 1 (01/08/23 7:48 AM) Anisocyte Moderate (01/08/23 7:48 AM) Plt Estimation [Adequate] Adequate (01/08/23 7:48 AM) Eos, Auto [1.0-6.0 %] 0.8 % *LOW* (01/08/23 7:48 AM) 1Result Comment: Few small sized clumps Social History Social History Type Response Tobacco Never tobacco user T obacco Use:. Sex Male Patient Care team information Care Team Personnel Name: Mishel Garland MEDICAL SPECIALIST Position: Physician Member Role: Nurse Practitioner Name: Aga Roach PA-C Position: PowerChart View Only Member Role: Informed Provider Address: Address: [address] [address] Care Team Related Persons Name: MAGUE SANTOYO Address: Home [facility] TANYA [place]ady [place], [id number]
--- OUTSIDE RECORDS SUMMARY | 2023-03-31 10:17 | XMS_ITS | Continuity of Care Document ---
Author Name Unknown Organization [facility] Address [address] [place] [address] Care Team Providers Care Chief Security And Safety Officer Name Role Phone Aga Roach Primary Care Physician [phone] Encounter [facility] Date(s): 08/17/22 - 08/17/[address] [address] Discharge Disposition: Home or Self Care Attending Physician: Aga Roach PA-C Admitting Physician: Aga Roach PA-C Allergies, Adverse Reactions, Alerts No Known Medication Allergies Assessment and Plan Future Appointments Diagnostic Tests Pending * Cyclosporine [facility] 08/17/22 Immunizations Given and Recorded Vaccine Date Status [...] Care team information Personnel Name: Aga Roach PA-C Address: Address: [address] [address]- [place]
--- OUTSIDE RECORDS SUMMARY | 2023-03-31 10:17 | XMS_ITS | Continuity of Care Document ---
Author Name Unknown Organization [facility] Address [address] [place] [address] Care Team Providers Care Senior Paralegal Name Role Phone Aga Roach Primary Care Physician [facility] Date(s): 03/08/23 - 03/08/23 [facility] [address] [place] [address] Discharge Disposition: Home or Self Care Attending Physician: Damir Freeman MD Admitting Physician: Damir Freeman MD Referring Physician: Damir Freeman MD Allergies, Adverse Reactions, Alerts No Known Medication Allergies Assessment and Plan Diagnostic Tests Pending * Cyclosporine [facility] 03/08/23 Immunizations Given and Recorded Vaccine Date Status [...] Results Laboratory List Name Date .Morphology ([facility]) 03/08/23 Automated Diff 03/08/23 Basic Metabolic Panel 03/08/23 CBC w/ Diff 03/08/23 PT/ INR 03/08/23 Most recent to oldest [Reference Range]: 1 WBC [5.0-10.0 x10^3/mcL] 8.0 x10^3/mcL (03/08/23 7:11 AM) RBC [4.6-6.0 x10^6/mcL] 2.6 x10^6/mcL *LOW* (03/08/23 7:11 AM) Neutro Auto [40.0-75.0 %] 52.0 % (03/08/23 7:11 AM) Lymph Auto [20.0-50.0 %] 33.2 % (03/08/23 7:11 AM) Allen Auto [2.0-15.0 %] 10.9 % (03/08/23 7:11 AM) Basophil Auto [0.0-1.0 %] 0.5 % (03/08/23 7:11 AM) Prothrombin Time [9.0-11.0 seconds] 37.1 seconds *HI* (03/08/23 7:11 AM) INR 3.8 1 *NA* (03/08/23 7:11 AM) BUN [7-18 mg/dL] 62 mg/dL *HI* (03/08/23 7:11 AM) Glucose Level [74-106 mg/dL] 122 mg/dL *HI* (03/08/23 7:11 AM) Potassium Level [3.5-5.1 mmol/L] 4.1 mmo l/L (7/3/23 7:11 AM) MCV [80.0-96.0 fL] 120.4 fL *HI* (03/08/23 7:11 AM) RBC Morph Abnormal (03/08/23 7:11 AM) MCHC [31.0-35.0 g/dL] 35.1 g/dL *HI* (03/08/23 7:11 AM) Sodium Level [136-145 mmol/L] 146 mmol/L *HI* (03/08/23 7:11 AM) Hct [41.0-51.0 %] 31.9 % *LOW* (03/08/23: AM) Calcium Level [8.5-10.1 mg/dL] 8.9 mg/dL (03/08/23 7: AM) MCH [26.0-32.0 pg] 42.3 pg *HI* (03/08/23 7:11 AM) Neutro Absolute 4.1 x10^3/mcL *NA* (03/08/23 7:11 AM) Hgb [14.0-18.0 g/dL] 11.2 g/dL *LOW* (03/08/23 7:11 AM) Platelets [130-450 x10^3/mcL] 227 x10^3/ mcL (03/08/23 7:11 AM) CO2 [21-32 mmol/L] 25 mmol/L (03/08/23 7:11 AM) Macrocyte Moderate (03/08/23 7:11 AM) eGFR Non-AA [>=60] 22 *LOW* (03/08/23 7:11 AM) eGFR AA [>=60] 22 *LOW* (03/08/23 7:11 AM) Chloride Level [98-107 mmol/L] 109 mmol/ L *HI* (03/08/23 7:11 AM) RDW-CV [11.5-14.5 %] 14.1 % (03/08/23 7: AM) Imm Gran Auto [0.0-0.9 %] 0.5 % (03/08/23 7: AM) Slide Review Morph Only (03/08/23: AM) Anisocyte Small (03/08/23: AM) Creatinine Level [0.70-1.30 mg/dL] 2.81 mg/dL *HI* (03/08/23 7:11 AM) Plt Estimation [Adequate] Adequate (03/08/23 7:11 AM) Eos, Auto [1.0-6.0 %] 2.9 % (03/08/23 7:11 AM) 1Interpretive Data: INR 2-2.5 Prophylaxis: Short term DVT INR 2-3 Prophylaxis: hip and femur surgery Therapy: DVT (3 mos) PE (3-6 mos) TIA (prison) Atr Fib (prison) Syst. emb post [place] Mitral Stenosis with emboli (prison) Tissue prosthetic valves (3 mos min) INR 3-4.5 Therapy: recurrent DVT, PE (prison) Prosthetic heart valves (intermission coordinator) Social History Social History Type Response Tobacco Never tobacco user T obacco Use:. Sex Male Patient Care team information Care Team Personnel Name: Mishel Garland UX LEAD Position: Physician Member Role: Nurse Practitioner Name: Aga Roach PA-C Position: PowerChart View Only Member Role: Primary Care Physician Address: Address: [facility] [address] [place] [address]- Care Team Related Persons Name: MAGUE SANTOYO Address: Home [address] [place] [address] Ysabel [place], [phone]
--- OUTSIDE RECORDS SUMMARY | 2023-03-31 10:17 | XMS_ITS | Continuity of Care Document ---
Author Name Unknown Organization [facility] Address [address] [place] [address] Care Team Providers Care Nut Sheller Machine Operator Name Role Phone Aga Roach Primary Care Physician Encounter [facility] Date(s): 07/10/22 - 07/10/[address] [address] Discharge Disposition: Home or Self Care Attending [...] Active Results Laboratory List Name Date ABO/Rh 07/10/22 Antibody Screen Gel 07/10/22 Red Blood Cells 07/10/22 Most recent to oldest [Reference Range]: 1 ABO/Rh Type O POS *Unknown* (07/10/22 12:39 PM) RBC Product Ready Done (07/10/22 12:39 PM) Antibody Screen Gel Negative ABSC (07/10/22 12:39 PM) Vital Signs Most recent to oldest [Reference Range]: 1 Temperature Temporal Artery [36-38 Deg C ] 37.6 Deg C (07/10/22 7:06 PM) Peripheral Pulse Rate [60-100 bpm] 74 bp m (07/10/22 7:06 PM) Respiratory Rate [12-24 br/min] 16 br/mi n (07/10/22 7:06 PM) Blood Pressure [90-140/60-90 mmHg] 109/6 7mmHg (07/10/22 7:06 PM) Mean Arterial Pressure Cuff 79 mmHg (07/10/22 7:06 PM) Blood Pressure Location Left arm (07/10/22 7:06 PM) Social History Social History Type Response Tobacco Never tobacco user T obacco Use:. Sex Male Patient Care team information Personnel Name: Aga Roach
--- OUTSIDE RECORDS SUMMARY | 2023-03-31 10:17 | XMS_ITS | Continuity of Care Document ---
Author Name Unknown Organization [facility] Address [address] [place] [address] Care Team Providers Care Shoe Caser Name Role Phone Aga Roach Primary Care Physician Encounter [facility] Date(s): 07/31/22 - 07/31/[address] [address] Discharge Disposition: Home or Self Care Attending [...] Active Results Laboratory List Name Date ABO/Rh 07/31/22 Antibody Screen Gel 07/31/22 Red Blood Cells 07/31/22 Most recent to oldest [Reference Range]: 1 ABO/Rh Type O POS *Unknown* (07/31/22 9:26 AM) RBC Product Ready Done (07/31/22 9:26 AM) Antibody Screen Gel Negative ABSC (07/31/22 9:26 AM) Vital Signs Most recent to oldest [Reference Range]: 1 2 3 Temperature Temporal Artery [36-38 Deg C] 36.7 Deg C (07/31/22 3:46 PM) 36.9 Deg C (07/31/22 2:54 PM) 36.9 Deg C (07/31/22 2:02 PM) Peripheral Pulse Rate [60-100 bpm] 69 bpm (07/31/22 3:46 PM) 69 bpm (07/31/22 2:54 PM) 70 bpm (07/31/22 2:02 PM) Respiratory Rate [12-24 br/min] 16 br/min (07/31/22 3:46 PM) 16 br/min (07/31/22 2:54 PM) 16 br/min (07/31/22 2:02 PM) Blood Pressure [90-140/60-90 mmHg] 97/62mmHg (07/31/22 3:46 PM) 91/59mmHg (07/31/22 2:54 PM) 92/54mmHg (07/31/22 2:02 PM) Mean Arterial Pressure Cuff 73 mmHg (07/31/22 3:46 PM) 69 mmHg (07/31/22 2:54 PM) 66 mmHg (07/31/22 2:02 PM) Blood Pressure Location Left arm (07/31/22 3:46 PM) Left arm (07/31/22 2:54 PM) Left arm (07/31/22 2:02 PM) Blood Pressure Method Automatic (07/31/22 3:46 PM) Automatic (07/31/22 2:54 PM) Automatic (07/31/22 2:02 PM) Social History Social History Type Response Tobacco Never tobacco user T obacco Use:. Sex Male Patient Care team information Personnel Name: Aga Roach PA-C Address: Address: [address] [address]- [place]
--- OUTSIDE RECORDS SUMMARY | 2023-03-31 10:17 | XMS_ITS | Continuity of Care Document ---
Author Name Unknown Organization [facility] Address [address] [place] [address] Care Team Providers Care Hatchery Manager Name Role Phone Aga Roach Primary Care Physician [phone] Encounter [facility] Date(s): 06/26/22 - 06/26/[address] [address] Discharge Disposition: Home or Self Care Attending [...] Artery [36-38 Deg C] 36.7 Deg C (06/26/22 1:41 PM) 36.8 Deg C (06/26/22 12:37 PM) 36.8 Deg C (06/26/22 11:39 AM) Peripheral Pulse Rate [60-100 bpm] 67 bpm (06/26/22 1:41 PM) 52 bpm *LOW* (06/26/22 12:37 PM) 50 bpm *LOW* (06/26/22 11:39 AM) Respiratory Rate [12-24 br/min] 16 br/min (06/26/22 1:41 PM) 16 br/min (06/26/22 12:37 PM) 16 br/min (06/26/22 11:39 AM) Blood Pressure [90-140/60-90 mmHg] 103/68mmHg (06/26/22 1:41 PM) 91/57mmHg (06/26/22 12:37 PM) 94/58mmHg (06/26/22 11:39 AM) Mean Arterial Pressure Cuff 80 mmHg (06/26/22 1:41 PM) 68 mmHg (06/26/22 12:37 PM) 71 mmHg (06/26/22 11:39 AM) Blood Pressure Location Left arm (06/26/22 1:41 PM) Left arm (06/26/22 12:37 PM) Left arm (06/26/22 11:39 AM) Blood Pressure Method Automatic (06/26/22 1:41 PM) Automatic (06/26/22 12:37 PM) Automatic (06/26/22 11:39 AM) Social History Social History Type Response Tobacco Never tobacco user T obacco Use:. Sex Male Patient Care team information Personnel Name: Aga Roach
--- OUTSIDE RECORDS SUMMARY | 2023-03-31 10:17 | XMS_ITS | Continuity of Care Document ---
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 Discharge Disposition: Home Attending Physician: Joe Betancur MD Attending Physician: Elie Gustafson DO Admitting Physician: Joe Betancur MD Allergies, Adverse Reactions, Alerts No Known Medication Allergies Assessment and Plan Diagnostic Tests Pending * Erythropoietin, S HAN[place] 06/05/22 * Haptoglobin UV 06/05/22 * Pathology Smear Consult 06/06/22 Future Scheduled Tests Laboratory* CBC w/ Diff 06/11/22 * Parvovirus B19 Abs, IgG & IgM, S [place] 06/11/22 Functional Status 06/06/22 Breakfast Percent 90 06/05/22 Family Member Travel History No recent t ravel Recent Travel History No recent travel Other exposure to Infectious Disease Non e 06/05/22 Living Environment No Living Environmen t Information Available Lives In Other: house Lives With Spouse Living Situation Home independently Home Barriers None Job Responsibilities retired teacher Number of Stairs Inside 13 Number of Stairs Outside 3 Medications aspirin 81 mg =, Oral, Daily, [...] Date: 06/05/22 Status: Ordered Problem List Condition Effective Dates Status Health Status Inform ant Hypertension(Confirmed) Active Results Laboratory List Name Date CBC w/o Diff (Hemogram) 06/06/22 CBC w/o Diff 06/06/22 Comprehensive Metabolic Panel 06/06/22 Magnesium Level 06/06/22 Troponin-I 06/06/22 Red Blood Cells 06/05/22 Hematocrit 06/05/22 Hemoglobin 06/05/22 CBC w/o Diff 06/05/22 Lactate Dehydrogenase (LDH) 06/05/22 Reticulocyte Count Automated 06/05/22 TSH w/ Rflx to Free T4 06/05/22 Troponin-I 06/05/22 Troponin-I 06/05/22 Ferritin 06/05/22 Folate Level 06/05/22 Iron Level and TIBC 06/05/22 Vitamin B12 Level 06/05/22 SARS-CoV-2 (COVID-19) RNA (ID Now) Urinalysis with Micro if Indicated and C ulture if Indicated 06/05/22 ABO/Rh 06/05/22 Antibody Screen Gel 06/05/22 Red Blood Cells 06/05/22 Comprehensive Metabolic Panel (CMP) 06/05 Magnesium Level 06/05/22 NT- Pro BNP 06/05/22 .Morphology ([facility]) 06/05/22 Automated Diff 06/05/22 Most recent to oldest [Reference Range]: 1 2 3 WBC [5.0-10.0 x10^3/mcL] 6.6 x10^3/mcL (06/06/22 1:20 PM) 7.6 x10^3/mcL (06/06/22 7:06 AM) 5.2 x10^3/mcL (06/05/22 7:09 PM) RBC [4.6-6.0 x10^6/mcL] 2.9 x10^6/mcL *LOW* (06/06/22 1:20 PM) 2.9 x10^6/mcL *LOW* (06/06/22 7:06 AM) 1.9 x10^6/mcL *LOW* (06/05/22 7:09 PM) Neutro Auto [40.0-75.0 %] 44.8 % (06/05/22 8:36 AM) Lymph Auto [20.0-50.0 %] 38.3 % (06/05/22 8:36 AM) [place] Auto [2.0-15.0 %] 11.7 % (06/05/22 8:36 AM) Basophil Auto [0.0-1.0 %] 0.7 % (06/05/22 8:36 AM) BUN [7-18 mg/dL] 24 mg/dL *HI* (06/06/22 7:06 AM) 25 mg/dL *HI* (06/05/22 8:36 AM) UA Color Yellow (06/05/22 10:09 AM) ABO/Rh Type O POS *Unknown* (06/05/22 8:56 AM) Glucose Level [74-106 mg/dL] 104 mg/dL (06/06/22 7:06 AM) 125 mg/dL *HI* (06/05/22 8:36 AM) Potassium Level [3.5-5.1 mmol/L] 4.2 mmol/L (06/06/22 7:06 AM) 4.1 mmol/L (06/05/22 8:36 AM) MCV [80.0-103.0 fL] 93.8 fL (06/06/22 1:20 PM) 92.3 fL (06/06/22 7:06 AM) 101.1 fL (06/05/22 7:09 PM) UA Urobilinogen Positive *ABN* (06/05/22 10:09 AM) RBC Morph Abnormal (06/05/22 8:36 AM) UA Bili [Negative] Negative (06/05/22 10:09 AM) UA Ketones Negative (06/05/22 10:09 AM) AST [15-37 unit/L] 19 unit/L (06/06/22 7:06 AM) 19 unit/L (06/05/22 8:36 AM) ALT [14-59 unit/L] 32 unit/L (06/06/22 7:06 AM) 37 unit/L (06/05/22 8:36 AM) MCHC [31.0-35.0 g/dL] 34.6 g/dL (06/06/22 1:20 PM) 35.1 g/dL *HI* (06/06/22 7:06 AM) 34.4 g/dL (06/05/22 7:09 PM) Troponin-I [0.0-76.2 pg/mL] 34.3 pg/mL (06/06/22 1:15 AM) 32.3 pg/mL (06/05/22 7:09 PM) 28.8 pg/mL (06/05/22 1:10 PM) Sodium Level [136-145 mmol/L] 140 mmol/L (06/06/22 7:06 AM) 140 mmol/L (06/05/22 8:36 AM) Folate Level [8.6-58.9 ng/mL] 17.7 ng/mL (06/05/22 11:32 AM) UA Leuk Est Negative (06/05/22 10:09 AM) UA Nitrite Negative (06/05/22 10:09 AM) UA Glucose [Negative] Negative (06/05/22 10:09 AM) Hct [41.0-51.0 %] 27.2 % *LOW* (06/06/22 1:20 PM) 26.5 % *LOW* (06/06/22 7:06 AM) 18.1 % 1 *CRIT* (06/05/22 8:22 PM) Calcium Level [8.5-10.1 mg/dL] 8.7 mg/dL (06/06/22 7:06 AM) 8.8 mg/dL (06/05/22 8:36 AM) Albumin Level [3.4-5.0 g/dL] 3.5 g/dL (06/06/22 7:06 AM) 3.6 g/dL (06/05/22 8:36 AM) Protein Total [6.4-8.2 g/dL] 6.1 g/dL *LOW* (06/06/22 7:06 AM) 6.2 g/dL *LOW* (06/05/22 8:36 AM) UA Protein Negative (06/05/22 10:09 AM) Iron Sat [20-55 %] 89 % *HI* (06/05/22 11:32 AM) MCH [26.0-32.0 pg] 32.4 pg *HI* (06/06/22 1:20 PM) 32.4 pg *HI* (06/06/22 7:06 AM) 34.7 pg *HI* (06/05/22 7:09 PM) Magnesium Level [1.8-2.4 mg/dL] 1.7 mg/dL *LOW* (06/06/22 7:06 AM) 2.0 mg/dL (06/05/22 8:36 AM) Neutro Absolute 2.7 x10^3/mcL *NA* (06/05/22 8:36 AM) Bilirubin Total [0.2-1.0 mg/dL] 1.7 mg/dL *HI* (06/06/22 7:06 AM) 0.7 mg/dL (06/05/22 8:36 AM) Hgb [14.0-18.0 g/dL] 9.4 g/dL *LOW* (06/06/22 1:20 PM) 9.3 g/dL *LOW* (06/06/22 7:06 AM) 6.5 g/dL 2 *CRIT* (06/05/22 8:22 PM) B12 Level [193-986 pg/mL] 4743 pg/mL *HI* (06/05/22 11:32 AM) Alk Phos [46-146 unit/L] 100 unit/L (06/06/22 7:06 AM) 107 unit/L (06/05/22 8:36 AM) LDH [85-227 unit/L] 267 unit/L *HI* (06/05/22 7:09 PM) UA Blood Negative (06/05/22 10:09 AM) UA Spec Grav 1.010 *NA* (06/05/22 10:09 AM) Ferritin Level [26-388 ng/mL] 1025 ng/mL *HI* (06/05/22 11:32 AM) Polychrom Rare (06/05/22 8:36 AM) Platelets [130-450 x10^3/mcL] 164 x10^3/mcL (06/06/22 1:20 PM) 156 x10^3/mcL (06/06/22 7:06 AM) 159 x10^3/mcL (06/05/22 7:09 PM) CO2 [21-32 mmol/L] 26 mmol/L (06/06/22 7:06 AM) 25 mmol/L (06/05/22 8:36 AM) TIBC [250-450 mcg/dL] 309 mcg/dL (06/05/22 11:32 AM) Reticulocyte % [0.5-2.4 %] 0.4 % *LOW* (06/05/22 7:09 PM) TSH [0.358-3.740 mcIntlUnit/mL] 1.504 mcIntlUnit/mL (06/05/22 7:09 PM) Iron [65-175 mcg/dL] 276 mcg/dL *HI* (06/05/22 11:32 AM) Macrocyte Small (06/05/22 8:36 AM) UA pH 6.0 *NA* (06/05/22 10:09 AM) eGFR Non-AA [>=60] 44 *LOW* (06/06/22 7:06 AM) 50 *LOW* (06/05/22 8:36 AM) eGFR AA [>=60] 44 *LOW* (06/06/22 7:06 AM) 50 *LOW* (06/05/22 8:36 AM) UA Appear Clear (06/05/22 10:09 AM) Volume Transfused 350 mL (06/05/22 1:19 PM) NT-proBNP [0-450 pg/mL] 760 pg/mL *HI* (06/05/22 8:36 AM) Chloride Level [98-107 mmol/L] 106 mmol/L (06/06/22 7:06 AM) 108 mmol/L *HI* (06/05/22 8:36 AM) RBC Product Ready Done (06/05/22 10:30 PM) Done (06/05/22 8:56 AM) RDW-CV [11.5-17.0 %] 18.8 % *HI* (06/06/22 1:20 PM) 18.6 % *HI* (06/06/22 7:06 AM) 17.2 % *HI* (06/05/22 7:09 PM) Imm Gran Auto [0.0-0.9 %] 0.2 % (06/05/22 8:36 AM) Creatinine Level [0.70-1.30 mg/dL] 1.58 mg/dL *HI* (06/06/22 7:06 AM) 1.43 mg/dL *HI* (06/05/22 8:36 AM) Antibody Screen Gel Negative ABSC (06/05/22 8:56 AM) SARS-CoV-2 (COVID-19) RNA (ID Now) [Not Detected] Not Detected (06/05/22 10:29 AM) Plt Estimation [Adequate] Adequate (06/05/22 8:36 AM) Anion Gap [8-16 mmol/L] 8 mmol/L (06/06/22 7:06 AM) 7 mmol/L *LOW* (06/05/22 8:36 AM) Eos, Auto [1.0-6.0 %] 4.3 % (06/05/22 8:36 AM) 1Result Comment: Called to ANNETTE Plummer at _06/05/2022 20:41:59 EDT 2Result Comment: Called to ANNETTE Plummer at _06/05/2022 20:41:14 EDT Vital Signs Most recent to oldest [Reference Range]: 1 2 3 Temperature Temporal Artery [36-38 Deg C] 37.2 Deg C (06/06/22 10:20 AM) 37.3 Deg C (06/06/22 6:37 AM) 37.3 Deg C (06/06/22 4:01 AM) Temperature Temporal Artery (DegF) [97.3-100 Deg F] 98.96 Deg F (06/06/22 10:20 AM) 99.86 Deg F (06/05/22 10:45 PM) 98.78 Deg F (06/05/22 5:17 PM) Peripheral Pulse Rate [60-100 bpm] 81 bpm (06/06/22 10:23 AM) 79 bpm (06/06/22 10:22 AM) 65 bpm (06/06/22 10:20 AM) Heart Rate Monitored [60-100 bpm] 67 bpm (06/05/22 1:19 PM) 77 bpm (06/05/22 1:07 PM) 74 bpm (06/05/22 12:10 PM) Respiratory Rate [12-24 br/min] 22 br/min (06/06/22 10:23 AM) 20 br/min (06/06/22 10:22 AM) 18 br/min (06/06/22 10:20 AM) Blood Pressure [90-140/60-90 mmHg] 113/72mmHg (06/06/22 10:23 AM) 116/70mmHg (06/06/22 10:22 AM) 101/71mmHg (06/06/22 10:20 AM) Mean Arterial Pressure, Cuff [65-140 mmHg] 86 mmHg (06/06/22 10:23 AM) 85 mmHg (06/06/22 10: AM) 81 mmHg (06/06/22 10:20 AM) Mean Arterial Pressure Cuff 97 mmHg (06/06/22 6:37 AM) 84 mmHg (06/06/22 4:01 AM) 82 mmHg (06/06/22 2:53 AM) Weight 86.8 kg (06/06/22 6:37 AM) 87.8 kg (06/05/22 2:12 PM) Weight Dosing 88.00 kg (06/05/22 8:36 AM) Weight Estimated 88.00 kg (06/05/22 8:16 AM) Height 5.9 cm (06/05/22 2:12 PM) Height/Length Dosing 175.000 cm (06/05/22 8:36 AM) Height/Length Estimated 175.000 cm (06/05/22 8:16 AM) Social History Social History Type Response Tobacco Never tobacco user T obacco Use:. Sex Male Hospital Discharge Instructions Patient Education 06/06/2022 14:19:28 Anemia Anemia Anemia is a condition in [...] Follow these instructions at home: ??? Take [id number] and prescription medicines only as told by [...] provider. Document Revised: 07/30/2020 Document Reviewed: 07/30/2020 Knowledge Factor Patient Education ?? 2021 [employer]. Follow Up Care 06/05/2022 08:16:13 With:Aga Roach Address: [phone] When:1 to 2 weeks Comments:Please follow up with Aga Roach. There are pending labs that will need to be followed up, and you will likely need to see a blood doctor. Patient Care team information Personnel Name: Aga Roach
--- OUTSIDE RECORDS SUMMARY | 2023-03-31 10:17 | XMS_ITS | Continuity of Care Document ---
Author Name Unknown Organization [facility] Address [address] [place] [address] Care Team Providers Care Butcher Assistant Name Role Phone Aga Roach Primary Care Physician [phone] Encounter [facility] Date(s): 08/10/22 - 08/10/[address] [address] Discharge Disposition: Home or Self Care Attending [...] Results Laboratory List Name Date .Morphology ([facility]) 08/10/22 Automated Diff 08/10/22 CBC w/ Diff 08/10/22 Most recent to oldest [Reference Range]: 1 WBC [5.0-10.0 x10^3/mcL] 9.4 x10^3/mcL (08/10/22 9:03 AM) RBC [4.6-6.0 x10^6/mcL] 2.7 x10^6/mcL *LOW* (08/10/22 9:03 AM) Neutro Auto [40.0-75.0 %] 69.9 % (08/10/22 9:03 AM) Lymph Auto [20.0-50.0 %] 15.7 % *LOW* (08/10/22 9:03 AM) [place] Auto [2.0-15.0 %] 11.5 % (08/10/22 9:03 AM) Basophil Auto [0.0-1.0 %] 0.4 % (08/10/22 9:03 AM) MCV [80.0-96.0] 88.0 (08/10/22 9:03 AM) RBC Morph Abnormal (08/10/22 9:03 AM) MCHC [31.0-35.0 g/dL] 32.8 g/dL (08/10/22 9:03 AM) Hct [41.0-51.0 %] 24.1 % *LOW* (08/10/22 9:03 AM) Microcyte Small (08/10/22 9:03 AM) Hypochromia Small (08/10/22 9:03 AM) [place] Rare (08/10/22 9:03 AM) MCH [26.0-32.0 pg] 28.8 pg (08/10/22 9:03 AM) Neutro Absolute 6.6 x10^3/mcL *NA* (08/10/22 9:03 AM) Hgb [14.0-18.0 g/dL] 7.9 g/dL *LOW* (08/10/22 9:03 AM) Platelets [130-450 x10^3/mcL] 198 x10^3/ mcL (08/10/22 9:03 AM) RDW-CV [11.5-17.0 %] 14.1 % (08/10/22 9:03 AM) Spherocyte Rare (08/10/22 9:03 AM) Imm Gran Auto [0.0-0.9 %] 0.5 % (08/10/22 9:03 AM) Anisocyte Small (08/10/22 9:03 AM) Plt Estimation [Adequate] Adequate (08/10/22 9:03 AM) Eos, Auto [1.0-6.0 %] 2.0 % (08/10/22 9:03 AM) Social History Social History Type Response Tobacco Never tobacco user T obacco Use:. Sex Male Patient Care team information Personnel Name: Aga Roach PA-C Address: Address: [id number] [place] [address]
--- OUTSIDE RECORDS SUMMARY | 2023-03-31 10:17 | XMS_ITS | Continuity of Care Document ---
Author Name Unknown Organization [facility] Address [address] [place] [address] Care Team Providers Care Programmer Business Name Role Phone Aga Roach Primary Care Physician Encounter [facility]_[place] Date(s): 12/10/22 - 12/10/[address] [address] Discharge Disposition: Home or Self Care Attending [...] tobacco user T obacco Use:. Sex Male Ambulatory cardiac rhythm monitor (Holter) study * Micaela Chavarria: PERFORM Event Display: Holter Monitor Authored Date: [id number] RUKHSANA SANTOYO 1940 [id number] Patient placed on Holter Monitor 48 Hours on 12/10/22. Electronically Signed on 12/10/22 09:15 AM Micaela Chavarria Patient Care team information Care Team Personnel Name: Mishel Garland RN [facility] Position: Physician Member Role: Nurse Practitioner Name: Aga Roach PA-C Position: PowerChart View Only Member Role: Primary Care Physician Address: Address: [address] [address] Care Team Related Persons Name: BARBARAPERRY MAGUE Address: [address] [place] [id number]
--- OUTSIDE RECORDS SUMMARY | 2023-03-31 10:17 | XMS_ITS | Continuity of Care Document ---
Author Name Unknown Organization [facility] Address [address] [place] [address] Care Team Providers Care Beta Tester Name Role Phone Aga Roach Primary Care Physician Encounter [facility] Date(s): 07/06/22 - 08/16/[address] [address] Discharge Disposition: Home or Self Care Attending Physician: Arnold Nevarez MD Admitting Physician: Arnold Nevarez MD Referring Physician: Aga Roach Allergies, Adverse Reactions, [...] tobacco user T obacco Use:. Sex Male History and physical note * Syeda Avila: PERFORM Event Display: History and Physical Authored Date: [id number] RUKHSANA SANTOYO :1940 Age:82 years Sex:Male Primary Care Physician: Aga Roach Chief Complaint anemia History of Present Illness The patient is an 82-year-old white male who looks at least 10 years younger than than his stated age who presents today for evaluation for anemia.?? Patient was feeling tired and??weak and subsequently was seen??hospital and was noted to be profoundly anemic. ??The patient had not seen any blood in his GI tract, but his hemoglobin was down to the 6 or 7 range. ??He received a total of??4 units of blood??which eventually raised his hemoglobin to an adequate level. ??It was rechecked a few weekslater and his hemoglobin had dropped requiring 2 more units of blood.?? The patient still has not seen any blood in his bowels and was sent here to discuss having a colonoscopy.?? The patient had a??colonoscopy several years ago in the s??for some rectal bleeding at that time. ??A small polyp was removed and he had a colonoscopy a??short time after that that was essentially normal. Physical Exam ?Vitals & Measurements ?HT:??174.8??cm?? WT:??86??kg?? BMI:??28.15?? BSA:??2.04?? General:??Patient is a very pleasant??appearing white male in no acute distress. ??He is here todaywith his . Heart has distant heart tones with a slow rate??he is on a beta-shazia medication Lungs: Clear??abdomen: Bowel sounds are positive with??mild??laxity??of the abdominal muscles but no obvious palpable masses or??redness noted. Assessment/Plan 1.??Anemia??D64.9 ?? Significant anemia??stable vital signs Plan:??The patient is having some blood work??sent??to an oncologist at another??facility. ??Apparently this had been requested??as an additional study to be sent to them.?? He will??probably need anEGD and colonoscopy.?? We discussed this in some detail and??we have??added??to wait and see what??the oncologist determination is on??their??tests??and I suspect they will want the double endoscopy performed at some point.?? I told the patient that a Cologuard test would not be effective as he could be bleeding from things that are not cancerous in nature??so he ultimately will probably end up with??the studies.?? We are going to wait and see what the final word is on the blood test from oncology.?? We will see if??they want to see him right away,??and if so, we will??set him up for endoscopy??afterwards. ??If it is going to be extended??for a period of time??for the oncology visit, we will try to get a scope scheduled as soon as possible.?? Patient Education .colonoscopyinstructions ([facility]) Problem List/Past Medical History Ongoing ?Hypertension Historical ?No qualifying data Medications ??aspirin, 81 mg, Oral, Daily ??lisinopril, 10 mg, Oral, Daily ??metoprolol extended release, 50 mg, Oral, BID ??rosuvastatin, 20 mg, Oral, Daily ??Vitamin C, 500 mg, Oral, Daily Allergies No Known Medication Allergies Social History Electronic Cigarette/Vaping ??Electronic Cigarette Use: Never. Tobacco ??Never tobacco user Tobacco Use:. ? Signature Line Electronically Signed on 07/03/22 01:59 PM Patric Lama MD [0] [0] Office Visit Note; Patric Lama MD 07/03/2022 13:58 EDT Electronically Signed on 07/07/22 10:42 AM Syeda Avila Patient Care team information Personnel Name: Aga Roach PA-C Address: Address: [address] [place] [address]- [place]
--- OUTSIDE RECORDS SUMMARY | 2023-03-31 10:17 | XMS_ITS | Continuity of Care Document ---
Author Name Unknown Organization [facility] Address [address] [place] [address] Care Team Providers Care Office Receptionist Name Role Phone Aga Roach Primary Care Physician Encounter [facility] Date(s): 03/17/23 - 03/17/23 [facility] [address] [place] [address] Discharge Disposition: Home or Self Care Attending Physician: Damir Freeman MD Admitting Physician: Damir Freeman MD Referring Physician: Damir Freeman MD Allergies, Adverse Reactions, Alerts No Known Medication Allergies Assessment and Plan Diagnostic Tests Pending * Cyclosporine [facility] 03/17/23 Immunizations Given and Recorded Vaccine Date Status [...] Laboratory List Name Date Basic Metabolic Panel 03/17/23 CBC w/ Diff 03/17/23 PT/ INR 03/17/23 .Morphology ([facility]) 03/17/23 Automated Diff 03/17/23 Most recent to oldest [Reference Range]: 1 WBC [5.0-10.0 x10^3/mcL] 8.0 x10^3/mcL (03/17/23 7:15 AM) RBC [4.6-6.0 x10^6/mcL] 2.8 x10^6/mcL *LOW* (03/17/23 7:15 AM) Neutro Auto [40.0-75.0 %] 47.5 % (03/17/23 7:15 AM) Lymph Auto [20.0-50.0 %] 35.5 % (03/17/23 7:15 AM) [place] Auto [2.0-15.0 %] 12.0 % (03/17/23 7:15 AM) Basophil Auto [0.0-1.0 %] 0.6 % (03/17/23 7:15 AM) Prothrombin Time [9.0-11.0 seconds] 20.0 seconds *HI* (03/17/23 7:15 AM) INR 2.1 1 *NA* (03/17/23 7:15 AM) BUN [7-18 mg/dL] 58 mg/dL *HI* (03/17/23 7:15 AM) Glucose Level [74-106 mg/dL] 122 mg/dL *HI* (03/17/23 7:15 AM) Potassium Level [3.5-5.1 mmol/L] 4.5 mmo l/L (03/17/23 7:15 AM) MCV [80.0-96.0 fL] 119.3 fL *HI* (03/17/23 7:15 AM) RBC Morph Abnormal (03/17/23 7:15 AM) MCHC [31.0-35.0 g/dL] 34.7 g/dL (03/17/23 7:15 AM) Sodium Level [136-145 mmol/L] 143 mmol/L (03/17/23 7:15 AM) Hct [41.0-51.0 %] 33.4 % *LOW* (03/17/23 7:15 AM) Calcium Level [8.5-10.1 mg/dL] 9.1 mg/dL (03/17/23 7:15 AM) Poik Small (03/17/23 7:15 AM) MCH [26.0-32.0 pg] 41.4 pg *HI* (03/17/23 7:15 AM) Neutro Absolute 3.8 x10^3/mcL *NA* (03/17/23 7:15 AM) Hgb [14.0-18.0 g/dL] 11.6 g/dL *LOW* (03/17/23 7:15 AM) Polychrom Rare (03/17/23 7:15 AM) Platelets [130-450 x10^3/mcL] 238 x10^3/ mcL (03/17/23 7:15 AM) CO2 [21-32 mmol/L] 28 mmol/L (03/17/23 7:15 AM) Macrocyte Moderate (03/17/23 7:15 AM) eGFR Non-AA [>=60] 27 *LOW* (03/17/23 7:15 AM) eGFR AA [>=60] 27 *LOW* (03/17/23 7:15 AM) Chloride Level [98-107 mmol/L] 107 mmol/ L (03/17/23 7:15 AM) RDW-CV [11.5-14.5 %] 14.0 % (03/17/23 7:15 AM) Stomatocyte Rare (03/17/23 7:15 AM) Imm Gran Auto [0.0-0.9 %] 0.2 % (03/17/23 7:15 AM) Slide Review Morph Only (03/17/23 7:15 AM) Creatinine Level [0.70-1.30 mg/dL] 2.38 mg/dL *HI* (03/17/23 7:15 AM) Plt Estimation [Adequate] Adequate (03/17/23 7:15 AM) Eos, Auto [1.0-6.0 %] 4.2 % (03/17/23 7:15 AM) 1Interpretive Data: INR 2-2.5 Prophylaxis: Short term DVT INR 2-3 Prophylaxis: hip and femur surgery Therapy: DVT (3 mos) PE (3-6 mos) TIA (regional intermodal truck driver) Atr Fib (senior care) Syst. emb post [place] Mitral Stenosis with emboli (senior care) Tissue prosthetic valves (3 mos min) INR 3-4.5 Therapy: recurrent DVT, PE (regional intermodal truck driver) Prosthetic heart valves (senior care) Social History Social History Type Response Tobacco Never tobacco user T obacco Use:. Sex Male Patient Care team information Care Team Personnel Name: Mishel Garland NON PROFIT JOB TITLES Position: Physician Member Role: Nurse Practitioner Name: Aga Roach PA-C Position: PowerChart View Only Member Role: Primary Care Physician Address: Address: [facility] [address] [place] [address]- Care Team Related Persons Name: MAGUE SANTOYO Address: [facility] [place], [phone]
--- OUTSIDE RECORDS SUMMARY | 2023-03-31 10:17 | XMS_ITS | Continuity of Care Document ---
Author Name Unknown Organization [facility] Address [address] [place] [address] Care Team Providers Care Transition Manager Name Role Phone Aga Roach Primary Care Physician Encounter [facility] Date(s): 01/26/23 - 01/26/[address] [address] Discharge Disposition: Home or Self Care Attending Physician: Damir Freeman MD Admitting Physician: Damir Freeman MD Referring Physician: Damir Freeman MD Allergies, Adverse Reactions, Alerts No Known Medication Allergies Assessment and Plan Diagnostic Tests Pending * Cyclosporine [facility] 01/26/23 Immunizations Given and Recorded Vaccine Date Status [...] Laboratory List Name Date Basic Metabolic Panel 01/26/23 CBC w/ Diff 01/26/23 PT/ INR 01/26/23 .Morphology ([facility]) 01/26/23 Automated Diff 01/26/23 Most recent to oldest [Reference Range]: 1 WBC [5.0-10.0 x10^3/mcL] 8.1 x10^3/mcL (01/26/23 10: AM) RBC [4.6-6.0 x10^6/mcL] 2.7 x10^6/mcL *LOW* (01/26/23 10:23 AM) Neutro Auto [40.0-75.0 %] 75.3 % *HI* (01/26/23 10: AM) Lymph Auto [20.0-50.0 %] 16.0 % *LOW* (01/26/23 10: AM) [place] Auto [2.0-15.0 %] 7.3 % (01/26/23 10: AM) Basophil Auto [0.0-1.0 %] 0.2 % (01/26/23 10:23 AM) Prothrombin Time [9.0-11.0 seconds] 15.1 seconds *HI* (01/26/23 10:23 AM) INR 1.5 *NA* (01/26/23 10: AM) BUN [7-18 mg/dL] 51 mg/dL *HI* (01/26/23 10:23 AM) Glucose Level [74-106 mg/dL] 156 mg/dL *HI* (01/26/23 10:23 AM) Potassium Level [3.5-5.1 mmol/L] 4.2 mmo l/L (01/26/23 10:23 AM) MCV [80.0-96.0 fL] 124.0 fL *HI* (01/26/23 10: AM) RBC Morph Abnormal (01/26/23 10: AM) MCHC [31.0-35.0 g/dL] 33.9 g/dL (01/26/23 10: AM) Sodium Level [136-145 mmol/L] 141 mmol/L (01/26/23 10: AM) Hct [41.0-51.0 %] 33.6 % *LOW* (01/26/23: AM) Schistocytes Rare (01/26/23: AM) Calcium Level [8.5-10.1 mg/dL] 9.0 mg/dL (01/26/23 10: AM) MCH [26.0-32.0 pg] 42.1 pg *HI* (01/26/23 10: AM) Neutro Absolute 6.1 x10^3/mcL *NA* (01/26/23 10: AM) Hgb [14.0-18.0 g/dL] 11.4 g/dL *LOW* (01/26/23 10: AM) Teardrop Cells Rare (01/26/23: AM) Platelets [130-450 x10^3/mcL] 193 x10^3/ mcL (01/26/23 10: AM) CO2 [21-32 mmol/L] 29 mmol/L (01/26/23 10: AM) Macrocyte Moderate (01/26/23 10: AM) eGFR Non-AA [>=60] 30 *LOW* (01/26/23 10: AM) eGFR AA [>=60] 30 *LOW* (01/26/23 10: AM) Chloride Level [98-107 mmol/L] 105 mmol/ L (01/26/23 10: AM) RDW-CV [11.5-14.5 %] 18.6 % *HI* (01/26/23 10:23 AM) Ovalocytes Rare (01/26/23 10: AM) Stomatocyte Rare (01/26/23 10:23 AM) Imm Gran Auto [0.0-0.9 %] 0.5 % (01/26/23 10:23 AM) Slide Review Morph Only (01/26/23 10:23 AM) Anisocyte Small (01/26/23 10: AM) Creatinine Level [0.70-1.30 mg/dL] 2.15 mg/dL *HI* (01/26/23 10:23 AM) Plt Estimation [Adequate] Adequate (01/26/23 10:23 AM) Eos, Auto [1.0-6.0 %] 0.7 % *LOW* (01/26/23 10:23 AM) Social History Social History Type Response Tobacco Never tobacco user T obacco Use:. Sex Male Patient Care team information Care Team Personnel Name: Mishel Garland VISITING TEACHER Position: Physician Member Role: Nurse Practitioner Name: Aga Roach PA-C Position: PowerChart View Only Member Role: Informed Provider Address: Address: [address] [address] Care Team Related Persons Name: MAGUE SANTOYO Address: Home [address], [phone]
--- OUTSIDE RECORDS SUMMARY | 2023-03-31 10:17 | XMS_ITS | Continuity of Care Document ---
Author Name Unknown Organization [facility] Address [address] [place] [address] Care Team Providers Care Sales Office Manager Name Role Phone Aga Roach Primary Care Physician Encounter [facility] Date(s): 02/08/23 - 02/08/[address] [address] Discharge Disposition: Home or Self Care Attending Physician: Damir Freeman MD Admitting Physician: Damir Freeman MD Referring Physician: Damir Freeman MD Allergies, Adverse Reactions, Alerts No Known Medication Allergies Assessment and Plan Diagnostic Tests Pending * Cyclosporine [facility] 02/08/23 Immunizations Given and Recorded Vaccine Date Status [...] Results Laboratory List Name Date .Morphology ([facility]) 02/08/23 Automated Diff 02/08/23 Basic Metabolic Panel 02/08/23 CBC w/ Diff 02/08/23 PT/ INR 02/08/23 Most recent to oldest [Reference Range]: 1 WBC [5.0-10.0 x10^3/mcL] 8.8 x10^3/mcL (02/08/23 7:14 AM) RBC [4.6-6.0 x10^6/mcL] 2.8 x10^6/mcL *LOW* (02/08/23 7:14 AM) Neutro Auto [40.0-75.0 %] 55.4 % (02/08/23 7:14 AM) Lymph Auto [20.0-50.0 %] 32.5 % (02/08/23 7:14 AM) [place] Auto [2.0-15.0 %] 9.8 % (02/08/23 7:14 AM) Basophil Auto [0.0-1.0 %] 0.5 % (02/08/23 7:14 AM) Prothrombin Time [9.0-11.0 seconds] 20.7 seconds *HI* (02/08/23 7:14 AM) INR 2.1 *NA* (02/08/23 7:14 AM) BUN [7-18 mg/dL] 55 mg/dL *HI* (02/08/23 7:14 AM) Glucose Level [74-106 mg/dL] 121 mg/dL *HI* (02/08/23 7:14 AM) Potassium Level [3.5-5.1 mmol/L] 4.7 mmo l/L (02/08/23 7:14 AM) MCV [80.0-96.0 fL] 122.7 fL *HI* (02/08/23 7:14 AM) RBC Morph Abnormal (02/08/23 7:14 AM) MCHC [31.0-35.0 g/dL] 34.4 g/dL (02/08/23 7:14 AM) Sodium Level [136-145 mmol/L] 144 mmol/L (02/08/23 7:14 AM) Hct [41.0-51.0 %] 34.0 % *LOW* (02/08/23 7:14 AM) Calcium Level [8.5-10.1 mg/dL] 9.0 mg/dL (02/08/23 7:14 AM) MCH [26.0-32.0 pg] 42.2 pg *HI* (02/08/23 7:14 AM) Neutro Absolute 4.9 x10^3/mcL *NA* (02/08/23 7:14 AM) Hgb [14.0-18.0 g/dL] 11.7 g/dL *LOW* (02/08/23 7:14 AM) Platelets [130-450 x10^3/mcL] 219 x10^3/ mcL (02/08/23 7:14 AM) CO2 [21-32 mmol/L] 29 mmol/L (02/08/23 7:14 AM) Macrocyte Small (02/08/23 7:14 AM) eGFR Non-AA [>=60] 28 *LOW* (02/08/23 7:14 AM) eGFR AA [>=60] 28 *LOW* (02/08/23 7:14 AM) Chloride Level [98-107 mmol/L] 107 mmol/ L (02/08/23 7:14 AM) RDW-CV [11.5-14.5 %] 16.1 % *HI* (02/08/23 7:14 AM) Imm Gran Auto [0.0-0.9 %] 0.5 % (02/08/23 7:14 AM) Slide Review Morph Only (02/08/23 7:14 AM) Anisocyte Moderate (02/08/23 7:14 AM) Creatinine Level [0.70-1.30 mg/dL] 2.31 mg/dL *HI* (02/08/23 7:14 AM) Plt Estimation [Adequate] Adequate (02/08/23 7:14 AM) Eos, Auto [1.0-6.0 %] 1.3 % (02/08/23 7:14 AM) Social History Social History Type Response Tobacco Never tobacco user T obacco Use:. Sex Male Patient Care team information Care Team Personnel Name: Mishel Garland LABEL CODER Position: Physician Member Role: Nurse Practitioner Name: Aga Roach PA-C Position: PowerChart View Only Member Role: Informed Provider Address: Address: [address] [address] [place] Care Team Related Persons Name: MAGUE SANTOYO Address: Home [address] [place], [phone]
--- OUTSIDE RECORDS SUMMARY | 2023-03-31 10:17 | XMS_ITS | Continuity of Care Document ---
Author Name Unknown Organization [facility] Address [address] [place] [address] Care Team Providers Care Gut Puller Name Role Phone Aga Roach Primary Care Physician Encounter [facility] Date(s): 03/02/23 - 03/02/[address] [address] Discharge Disposition: Home or Self Care Attending Physician: Damir Freeman MD Admitting Physician: Damir Freeman MD Referring Physician: Damir Freeman MD Allergies, Adverse Reactions, Alerts No Known Medication Allergies Assessment and Plan Diagnostic Tests Pending * Cyclosporine [facility] 03/02/23 Immunizations Given and Recorded Vaccine Date Status [...] Laboratory List Name Date Basic Metabolic Panel 03/02/23 CBC w/ Diff 03/02/23 PT/ INR 03/02/23 .Morphology ([facility]) 03/02/23 Automated Diff 03/02/23 Most recent to oldest [Reference Range]: 1 WBC [5.0-10.0 x10^3/mcL] 7.9 x10^3/mcL (03/02/23 12:55 PM) RBC [4.6-6.0 x10^6/mcL] 2.9 x10^6/mcL *LOW* (03/02/23 12:55 PM) Neutro Auto [40.0-75.0 %] 52.9 % (03/02/23 12:55 PM) Lymph Auto [20.0-50.0 %] 29.4 % (03/02/23 12:55 PM) [place] Auto [2.0-15.0 %] 13.2 % (03/02/23 12:55 PM) Basophil Auto [0.0-1.0 %] 0.5 % (03/02/23 12:55 PM) Prothrombin Time [9.0-11.0 seconds] 29.4 seconds *HI* (03/02/23 12:55 PM) INR 3.0 1 *NA* (03/02/23 12:55 PM) BUN [7-18 mg/dL] 68 mg/dL *HI* (03/02/23 12:55 PM) Glucose Level [74-106 mg/dL] 126 mg/dL *HI* (03/02/23 12:55 PM) Potassium Level [3.5-5.1 mmol/L] 3.7 mmo l/L (03/02/23 12:55 PM) MCV [80.0-96.0 fL] 118.9 fL *HI* (03/02/23 12:55 PM) RBC Morph Abnormal (03/02/23 12:55 PM) MCHC [31.0-35.0 g/dL] 34.7 g/dL (03/02/23 12:55 PM) Sodium Level [136-145 mmol/L] 142 mmol/L (03/02/23 12:55 PM) Hct [41.0-51.0 %] 34.0 % *LOW* (03/02/23 12:55 PM) [place] Small (03/02/23: PM) Calcium Level [8.5-10.1 mg/dL] 8.8 mg/dL (03/02/23 12:55 PM) Poik Rare (03/02/23 12:55 PM) MCH [26.0-32.0 pg] 41.3 pg *HI* (03/02/23 12:55 PM) Neutro Absolute 4.2 x10^3/mcL *NA* (03/02/23 12:55 PM) Hgb [14.0-18.0 g/dL] 11.8 g/dL *LOW* (03/02/23 12:55 PM) Platelets [130-450 x10^3/mcL] 215 x10^3/ mcL (03/02/23 12:55 PM) CO2 [21-32 mmol/L] 27 mmol/L (03/02/23 12:55 PM) Macrocyte Small (03/02/23 12:55 PM) eGFR Non-AA [>=60] 21 *LOW* (03/02/23 12:55 PM) eGFR AA [>=60] 21 *LOW* (03/02/23 12:55 PM) Chloride Level [98-107 mmol/L] 107 mmol/ L (03/02/23 12:55 PM) RDW-CV [11.5-14.5 %] 14.5 % (03/02/23 12:55 PM) Imm Gran Auto [0.0-0.9 %] 0.5 % (03/02/23 12:55 PM) Slide Review Morph Only (03/02/23 12:55 PM) Anisocyte Small (03/02/23 12:55 PM) Creatinine Level [0.70-1.30 mg/dL] 2.87 mg/dL *HI* (03/02/23 12:55 PM) Plt Estimation [Adequate] Adequate (03/02/23 12:55 PM) Eos, Auto [1.0-6.0 %] 3.5 % (03/02/23 12:55 PM) 1Interpretive Data: INR 2-2.5 Prophylaxis: Short term DVT INR 2-3 Prophylaxis: hip and femur surgery Therapy: DVT (3 mos) PE (3-6 mos) TIA ([facility]) Atr Fib (truck terminal manager) Syst. emb post [place] Mitral Stenosis with emboli (truck terminal manager) Tissue prosthetic valves (3 mos min) INR 3-4.5 Therapy: recurrent DVT, PE ([facility]) Prosthetic heart valves ([facility]) Social History Social History Type Response Tobacco Never tobacco user T obacco Use:. Sex Male Patient Care team information Care Team Personnel Name: Mishel Garland SHIP MANAGER Position: Physician Member Role: Nurse Practitioner Name: Aga Roach PA-C Position: PowerChart View Only Member Role: Primary Care Physician Address: Address: [facility] [address] [place] [address]- Care Team Related Persons Name: MAGUE SANTOYO Address: Home [address] [place] [address] [address] [place], [phone]
--- OUTSIDE RECORDS SUMMARY | 2023-03-31 10:17 | XMS_ITS | Continuity of Care Document ---
Author Name Unknown Organization [facility] Address [address] [place] [address] Care Team Providers Care Psychology Teacher Name Role Phone Aga Roach Primary Care Physician Encounter [facility] Date(s): 02/23/23 - 02/23/[address] [address] Discharge Disposition: Home or Self Care Attending Physician: Damir Freeman MD Admitting Physician: Damir Freeman MD Referring Physician: Damir Freeman MD Allergies, Adverse Reactions, Alerts No Known Medication Allergies Assessment and Plan Diagnostic Tests Pending * Comprehensive Metabolic Panel 02/23/23 * Cyclosporine [facility] 02/23/23 Immunizations Given and Recorded Vaccine Date Status [...] Results Laboratory List Name Date .Morphology ([facility]) 02/23/23 Basic Metabolic Panel 02/23/23 CBC w/ Diff 02/23/23 PT/ INR 02/23/23 Automated Diff 02/23/23 Most recent to oldest [Reference Range]: 1 WBC [5.0-10.0 x10^3/mcL] 7.2 x10^3/mcL (02/23/23 7:30 AM) RBC [4.6-6.0 x10^6/mcL] 2.8 x10^6/mcL *LOW* (02/23/23 7:30 AM) Neutro Auto [40.0-75.0 %] 55.8 % (02/23/23 7:30 AM) Lymph Auto [20.0-50.0 %] 31.8 % (02/23/23 7:30 AM) [place] Auto [2.0-15.0 %] 10.9 % (02/23/23 7:30 AM) Basophil Auto [0.0-1.0 %] 0.4 % (02/23/23 7:30 AM) Prothrombin Time [9.0-11.0 seconds] 18.2 seconds *HI* (02/23/23 7:30 AM) INR 1.8 1 *NA* (02/23/23 7:30 AM) BUN [7-18 mg/dL] 56 mg/dL *HI* (02/23/23 7:30 AM) Glucose Level [74-106 mg/dL] 108 mg/dL *HI* (02/23/23 7:30 AM) Potassium Level [3.5-5.1 mmol/L] 4.7 mmo l/L (02/23/23 7:30 AM) MCV [80.0-96.0 fL] 121.2 fL *HI* (02/23/23 7:30 AM) RBC Morph Abnormal (02/23/23 7:30 AM) MCHC [31.0-35.0 g/dL] 35.0 g/dL (02/23/23 7:30 AM) Sodium Level [136-145 mmol/L] 145 mmol/L (02/23/23 7:30 AM) Hct [41.0-51.0 %] 34.3 % *LOW* (02/23/23:30 AM) Calcium Level [8.5-10.1 mg/dL] 9.1 mg/dL (02/23/23 7:30 AM) Poik Rare (02/23/23 7:30 AM) MCH [26.0-32.0 pg] 42.4 pg *HI* (02/23/23 7:30 AM) Neutro Absolute 4.0 x10^3/mcL *NA* (02/23/23 7:30 AM) Hgb [14.0-18.0 g/dL] 12.0 g/dL *LOW* (02/23/23 7:30 AM) Polychrom Rare (02/23/23 7:30 AM) Platelets [130-450 x10^3/mcL] 207 x10^3/ mcL (02/23/23 7:30 AM) CO2 [21-32 mmol/L] 30 mmol/L (02/23/23 7:30 AM) Macrocyte Moderate (02/23/23 7:30 AM) eGFR Non-AA [>=60] 27 *LOW* (02/23/23 7:30 AM) eGFR AA [>=60] 27 *LOW* (02/23/23 7:30 AM) Chloride Level [98-107 mmol/L] 107 mmol/ L (02/23/23 7:30 AM) RDW-CV [11.5-14.5 %] 14.8 % *HI* (02/23/23 7:30 AM) Imm Gran Auto [0.0-0.9 %] 0.4 % (02/23/23 7:30 AM) Slide Review Morph Only (02/23/23 7:30 AM) Anisocyte Small (02/23/23 7:30 AM) Creatinine Level [0.70-1.30 mg/dL] 2.36 mg/dL *HI* (02/23/23 7:30 AM) Plt Estimation [Adequate] Adequate (02/23/23 7:30 AM) Eos, Auto [1.0-6.0 %] 0.7 % *LOW* (02/23/23 7:30 AM) 1Interpretive Data: INR 2-2.5 Prophylaxis: Short term DVT INR 2-3 Prophylaxis: hip and femur surgery Therapy: DVT (3 mos) PE (3-6 mos) TIA (long term care administrator) Atr Fib ([facility]) Syst. emb post [place] Mitral Stenosis with emboli ([facility]) Tissue prosthetic valves (3 mos min) INR 3-4.5 Therapy: recurrent DVT, PE ([facility]) Prosthetic heart valves (long term care administrator) Social History Social History Type Response Tobacco Never tobacco user T obacco Use:. Sex Male Patient Care team information Care Team Personnel Name: Mishel Garland SDE Position: Physician Member Role: Nurse Practitioner Name: Aga Roach PA-C Position: PowerChart View Only Member Role: Primary Care Physician Address: Address: [facility] [address] [place] [address]- Name: Damir Freeman MD Position: No Access Member Role: Informed Provider Address: Address: [facility] [address] [place] [id number] Care Team Related Persons Name: MAGUE SANTOYO Address: Home [address] [place] [address] [address]sabel [address], [phone]
--- OUTSIDE RECORDS SUMMARY | 2023-03-31 10:17 | XMS_ITS | Continuity of Care Document ---
Author Name Unknown Organization [facility] Address [address] [place] [address] Care Team Providers Care Behavioral Health Specialist Name Role Phone Aga Roach Primary Care Physician Encounter [facility] Date(s): 02/16/23 - 02/16/[address] [address] Discharge Disposition: Home or Self Care Attending Physician: Damir Freeman MD Admitting Physician: Damir Freeman MD Referring Physician: Damir Freeman MD Allergies, Adverse Reactions, Alerts No Known Medication Allergies Assessment and Plan Diagnostic Tests Pending * Cyclosporine [facility] 02/16/23 Immunizations Given and Recorded Vaccine Date Status [...] Laboratory List Name Date Basic Metabolic Panel 02/16/23 CBC w/ Diff 02/16/23 PT/ INR 02/16/23 .Morphology ([facility]) 02/16/23 Automated Diff 02/16/23 Most recent to oldest [Reference Range]: 1 WBC [5.0-10.0 x10^3/mcL] 7.2 x10^3/mcL (02/16/23 12:52 PM) RBC [4.6-6.0 x10^6/mcL] 2.8 x10^6/mcL *LOW* (02/16/23 12:52 PM) Neutro Auto [40.0-75.0 %] 59.1 % (02/16/23 12:52 PM) Lymph Auto [20.0-50.0 %] 27.7 % (02/16/23 12:52 PM) [place] Auto [2.0-15.0 %] 10.5 % (02/16/23 12:52 PM) Basophil Auto [0.0-1.0 %] 0.6 % (02/16/23 12:52 PM) Prothrombin Time [9.0-11.0 seconds] 13.1 seconds *HI* (02/16/23 12:52 PM) INR 1.3 *NA* (02/16/23 12:52 PM) BUN [7-18 mg/dL] 48 mg/dL *HI* (02/16/23 12:52 PM) Glucose Level [74-106 mg/dL] 192 mg/dL *HI* (02/16/23 12:52 PM) Potassium Level [3.5-5.1 mmol/L] 4.5 mmo l/L (02/16/23 12:52 PM) MCV [80.0-96.0 fL] 123.0 fL *HI* (02/16/23 12:52 PM) RBC Morph Abnormal (02/16/23:52 PM) MCHC [31.0-35.0 g/dL] 34.3 g/dL (02/16/23 12:52 PM) Sodium Level [136-145 mmol/L] 142 mmol/L (02/16/23 12:52 PM) Hct [41.0-51.0 %] 34.7 % *LOW* (02/16/23:52 PM) Schistocytes Rare (02/16/23: PM) Hypochromia Rare (02/16/23: PM) Calcium Level [8.5-10.1 mg/dL] 9.1 mg/dL (02/16/23 12:52 PM) MCH [26.0-32.0 pg] 42.2 pg *HI* (02/16/23:52 PM) Neutro Absolute 4.3 x10^3/mcL *NA* (02/16/23 12:52 PM) Hgb [14.0-18.0 g/dL] 11.9 g/dL *LOW* (02/16/23:52 PM) Platelets [130-450 x10^3/mcL] 209 x10^3/ mcL (02/16/23 12:52 PM) CO2 [21-32 mmol/L] 30 mmol/L (02/16/23 12:52 PM) Macrocyte Moderate (02/16/23:52 PM) eGFR Non-AA [>=60] 31 *LOW* (02/16/23 12:52 PM) eGFR AA [>=60] 31 *LOW* (02/16/23 12:52 PM) Chloride Level [98-107 mmol/L] 107 mmol/ L (02/16/23 12:52 PM) RDW-CV [11.5-14.5 %] 15.8 % *HI* (02/16/23 12:52 PM) Stomatocyte Rare (02/16/23: PM) Imm Gran Auto [0.0-0.9 %] 0.7 % (6/13/23 12:52 PM) Slide Review Morph Only (02/16/23 12:52 PM) Anisocyte Small (02/16/23 12:52 PM) Creatinine Level [0.70-1.30 mg/dL] 2.09 mg/dL *HI* (02/16/23 12:52 PM) Plt Estimation [Adequate] Adequate (02/16/23 12:52 PM) Eos, Auto [1.0-6.0 %] 1.4 % (02/16/23 12:52 PM) Social History Social History Type Response Tobacco Never tobacco user T obacco Use:. Sex Male Patient Care team information Care Team Personnel Name: Mishel Garland GARBAGE PERSON Position: Physician Member Role: Nurse Practitioner Name: Aga Roach PA-C Position: PowerChart View Only Member Role: Informed Provider Address: Address: [address] [address] Care Team Related Persons Name: MAGUE SANTOYO Address: Home [address] [place] [address], [phone]
--- OUTSIDE RECORDS SUMMARY | 2023-03-31 10:17 | XMS_ITS | Continuity of Care Document ---
Author Name Unknown Organization [facility] Address [address] [place] [address] Care Team Providers Care Environmental Engineering Professor Name Role Phone Aga Roach Primary Care Physician [phone] Encounter [facility] Date(s): 02/02/23 - 02/02/[address] [address] Discharge Disposition: Home or Self Care Attending Physician: Damir Freeman MD Admitting Physician: Damir Freeman MD Referring Physician: Damir Freeman MD Allergies, Adverse Reactions, Alerts No Known Medication Allergies Assessment and Plan Diagnostic Tests Pending * Cyclosporine [facility] 02/02/23 Immunizations Given and Recorded Vaccine Date Status [...] Results Laboratory List Name Date .Morphology ([facility]) 02/02/23 Automated Diff 02/02/23 Basic Metabolic Panel 02/02/23 CBC w/ Diff 02/02/23 PT/ INR 02/02/23 Most recent to oldest [Reference Range]: 1 WBC [5.0-10.0 x10^3/mcL] 9.2 x10^3/mcL (02/02/23 8:43 AM) RBC [4.6-6.0 x10^6/mcL] 2.8 x10^6/mcL *LOW* (02/02/23 8:43 AM) Neutro Auto [40.0-75.0 %] 64.3 % (02/02/23 8:43 AM) Lymph Auto [20.0-50.0 %] 24.6 % (02/02/23 8:43 AM) Obion Auto [2.0-15.0 %] 9.0 % (02/02/23 8:43 AM) Basophil Auto [0.0-1.0 %] 0.3 % (02/02/23 8:43 AM) Prothrombin Time [9.0-11.0 seconds] 14.7 seconds *HI* (02/02/23 8:43 AM) INR 1.5 *NA* (02/02/23 8:43 AM) BUN [7-18 mg/dL] 57 mg/dL *HI* (02/02/23 8:43 AM) Glucose Level [74-106 mg/dL] 125 mg/dL *HI* (02/02/23 8:43 AM) Potassium Level [3.5-5.1 mmol/L] 4.1 mmo l/L (02/02/23 8:43 AM) MCV [80.0-96.0 fL] 123.6 fL *HI* (02/02/23 8:43 AM) RBC Morph Abnormal (02/02/23 8:43 AM) MCHC [31.0-35.0 g/dL] 33.7 g/dL (02/02/23 8:43 AM) Sodium Level [136-145 mmol/L] 143 mmol/L (02/02/23 8:43 AM) Hct [41.0-51.0 %] 34.1 % *LOW* (02/02/23 8:43 AM) Calcium Level [8.5-10.1 mg/dL] 9.0 mg/dL (02/02/23 8:43 AM) MCH [26.0-32.0 pg] 41.7 pg *HI* (02/02/23 8:43 AM) Neutro Absolute 5.9 x10^3/mcL *NA* (02/02/23 8:43 AM) Hgb [14.0-18.0 g/dL] 11.5 g/dL *LOW* (02/02/23 8:43 AM) Polychrom Rare (02/02/23 8:43 AM) Platelets [130-450 x10^3/mcL] 197 x10^3/ mcL (02/02/23 8:43 AM) CO2 [21-32 mmol/L] 32 mmol/L (02/02/23 8:43 AM) Macrocyte Moderate (02/02/23 8:43 AM) eGFR Non-AA [>=60] 30 *LOW* (02/02/23 8:43 AM) eGFR AA [>=60] 30 *LOW* (02/02/23 8:43 AM) Chloride Level [98-107 mmol/L] 102 mmol/ L (02/02/23 8:43 AM) RDW-CV [11.5-14.5 %] 17.0 % *HI* (02/02/23 8:43 AM) Imm Gran Auto [0.0-0.9 %] 0.5 % (02/02/23 8:43 AM) Slide Review Morph Only (02/02/23 8:43 AM) Anisocyte Small (02/02/23 8:43 AM) Creatinine Level [0.70-1.30 mg/dL] 2.16 mg/dL *HI* (02/02/23 8:43 AM) Plt Estimation [Adequate] Adequate (02/02/23 8:43 AM) Eos, Auto [1.0-6.0 %] 1.3 % (02/02/23 8:43 AM) Social History Social History Type Response Tobacco Never tobacco user T obacco Use:. Sex Male Patient Care team information Care Team Personnel Name: Mishel Garland SALES PROMOTER Position: Physician Member Role: Nurse Practitioner Name: Aga Roach PA-C Position: PowerChart View Only Member Role: Informed Provider Address: Address: [address] [address] Care Team Related Persons Name: BRITTANEY SANTOYON Address: Home [address], [phone]
--- OUTSIDE RECORDS SUMMARY | 2023-03-31 10:17 | XMS_ITS | Continuity of Care Document ---
Author Name Unknown Organization [facility] Address [address] [place] [address] Care Team Providers Care Rn Lpn Lvn Name Role Phone Aga Roach Primary Care Physician Encounter [facility] Date(s): 07/03/22 - 07/03/[address] [id number] Discharge Disposition: Home or Self Care Attending Physician: Aga Roach Admitting Physician: Aga Roach Referring Physician: Aga Roach Allergies, Adverse Reactions, Alerts No Known Medication Allergies Assessment and Plan Diagnostic Tests Pending * Haptoglobin [facility] 07/03/22 Medications aspirin 81 mg =, Oral, Daily, [...] Confirmed Active Results Laboratory List Name Date Ferritin 07/03/22 Folate Level 07/03/22 Vitamin B12 Level 07/03/22 Most recent to oldest [Reference Range]: 1 Folate Level [8.6-58.9 ng/mL] 25.7 ng/mL (07/03/22 12:34 PM) B12 Level [193-986 pg/mL] >2000 pg/mL *HI* (07/03/22 12:34 PM) Ferritin Level [26-388 ng/mL] 1596 ng/mL *HI* (07/03/22 12:34 PM) Social History Social History Type Response Tobacco Never tobacco user T obacco Use:. Sex Male Patient Care team information Personnel Name: Aga Roach
[2023-03-31 20:30] LABS: COMMENT (LAB VIEW ONLY) 216.55 mg/dL; Microalb ug/mg Crea 11.2 ug/mg Cr
== END 2023-03-31 10:15 | disposition home or self-care (01) ==
LOC: NCHCN 10:14
PROVIDERS: PCP Physician Assistant Medical; Visit Provider Physician Assistant
DX: E11.65 Type 2 diabetes mellitus with hyperglycemia (principal)
CPT/HCPCS: 82043; 82570

== ENCOUNTER 2025-04-25 07:52 | Outpatient (CLI) | payer MEDICARE, SELFPAY ==
--- NOTE | 2025-04-25 07:45 | RT.EKG_ITS ---
APPROVED REPORT Exam: Resting ECG Reason for Exam: ascvd Patient Location: O HR:67 bpm ECG Measurements Heart Rate 67 AXIS MD 197 P -9 QRSd 146 QRS -74 QT 447 T 61 QTc 472 Conclusion Sinus rhythm...normal P axis, V-rate 50- 99 RBBB and LAFB...QRSd >120mS, axis(-40,240)
== END 2025-04-25 07:53 | disposition home or self-care (01) ==
LOC: DI.CARD 08:55
PROVIDERS: PCP Physician Assistant Medical; Visit Provider Student in an Organized Health Care Education/Training Program
DX: I44.2 Atrioventricular block, complete (principal); I25.10 Atherosclerotic heart disease of native coronary artery without angina pectoris; I45.10 Unspecified right bundle-branch block; I44.4 Left anterior fascicular block
CPT/HCPCS: 93010

== ENCOUNTER → 2025-04-25 14:10 | Outpatient (BNVA) | payer MEDICARE, SELFPAY | PROVIDERS: PCP Physician Assistant Medical; Referring Provider Physician Assistant Medical; Visit Provider Student in an Organized Health Care Education/Training Program | DX: I25.10 Atherosclerotic heart disease of native coronary artery without angina pectoris (principal); I44.2 Atrioventricular block, complete; Z45.018 Encounter for adjustment and management of other part of cardiac pacemaker | CPT/HCPCS: 93280 ==